=== PATIENT | male | born 1945 | race Caucasian/White ===

== ENCOUNTER 2018-03-07 04:14 | Emergency (ER) | payer OTHER ==
--- OUTSIDE RECORDS SUMMARY | 2018-03-07 04:16 | XMS REPORT | Clinical Summary ---
:1945 Author Organization [facility] Address [address] [place] [address] Care Team Providers Name Role Phone Yahir Smith MD Primary Care Provider Unavailable Allergies Active Allergy Reactions Severity Noted Date Comments Codeine Sulfate Salt 12/22/2017 Current Medications Prescription Sig. Disp. Refills Start Date End Date Status metFORMIN Take 500 mg by Active (GLUCOPHAGE) 500 mouth 2 (two) mg tablet times a day with meals. sertraline Take 100 mg by Active (ZOLOFT) 100 MG mouth daily. tablet prazosin Take 5 mg by Active (MINIPRESS) 5 MG mouth nightly. capsule gabapentin Take 600 mg by Active (NEURONTIN) 600 mg mouth 3 (three) tablet times a day. aspirin (ECOTRIN) Take 81 mg by Active 81 MG enteric mouth daily. coated tablet ipratropium-albute Inhale 2 puffs 4 Active rol (COMBIVENT (four) times a RESPIMAT) 20-100 day. mcg/actuation mist inhaler albuterol Take 2.5 mg by Active (PROVENTIL) 2.5 mg nebulization /3 mL (0.083 %) every 6 (six) nebulizer solution hours as needed for wheezing. tiotropium-olodate Take 2 Active rol (STIOLTO inhalations by RESPIMAT) 2.5-2.5 mouth once daily. mcg/actuation inhalation solution metoprolol Take 1 tablet (25 180 tablet 4 03/18/2017 Active tartrate mg total) by (LOPRESSOR) 25 mg mouth 2 (two) tablet times a day. ranolazine Take 1 tablet 180 tablet 4 03/18/2017 Active (RANEXA) 1,000 mg (1,000 mg total) 12 hr tablet by mouth 2 (two) times a day. esomeprazole Take 1 capsule 90 capsule 4 03/18/2017 Active (NexIUM) 40 MG (40 mg total) by capsule mouth daily before breakfast. omeprazole Take 1 capsule 60 capsule 4 06/11/2017 06/11/20 Active (PriLOSEC) 40 MG (40 mg total) by 18 capsule mouth daily. valACYclovir Take 1 tablet 90 tablet 1 11/05/2017 Active (VALTREX) 1000 MG (1,000 mg total) tablet by mouth daily. atorvastatin Take 1 tablet (40 90 tablet 2 12/20/2017 Active (LIPITOR) 40 MG mg total) by tablet mouth daily. clopidogrel Take 75 mg by Active (PLAVIX) 75 mg mouth daily. tablet lisinopril Take 5 mg by 03/18/20 Discontinued (PRINIVIL,ZESTRIL) mouth daily. 17 5 mg tablet clopidogrel Take 75 mg by 03/18/20 Discontinued (PLAVIX) 75 mg mouth daily. 17 tablet esomeprazole Take 40 mg by 03/18/20 Discontinued (NexIUM) 40 MG mouth daily 17 capsule before breakfast. ranolazine Take 1,000 mg by 03/18/20 Discontinued (RANEXA) 1,000 mg mouth 2 (two) 17 12 hr tablet times a day. metoprolol Take 25 mg by 03/18/20 Discontinued tartrate mouth 2 (two) 17 (LOPRESSOR) 25 mg times a day. tablet valACYclovir Take 1,000 mg by 06/11/20 Discontinued (VALTREX) 1000 MG mouth daily. 17 tablet atorvastatin Take 40 mg by 03/18/20 Discontinued (LIPITOR) 40 MG mouth daily. 17 tablet ipratropium Take 500 mcg by 12/23/19 Discontinued (ATROVENT) 0.02 % nebulization 4 18 nebulizer solution (four) times a day. nitroglycerin 1 under the 100 tablet 11 03/18/2017 12/23/19 Discontinued (NITROSTAT) 0.4 MG tongue as needed 18 SL tablet for angina, may repeat q5mins for up three doses atorvastatin Take 1 tablet (40 90 tablet 3 03/18/2017 12/21/19 Discontinued (LIPITOR) 40 MG mg total) by 18 tablet mouth daily. clopidogrel Take 1 tablet (75 90 tablet 3 03/18/2017 12/23/19 Discontinued (PLAVIX) 75 mg mg total) by 18 tablet mouth daily. lisinopril Take 1 tablet (5 90 tablet 4 03/18/2017 12/23/19 Discontinued (PRINIVIL,ZESTRIL) mg total) by 18 5 mg tablet mouth daily. valACYclovir Take 1 tablet 30 tablet 1 06/11/2017 11/05/19 Discontinued (VALTREX) 1000 MG (1,000 mg total) 18 tablet by mouth daily. Active Problems No known active problems Encounters Date Type Specialty Care Team Description 01/04/2018 Telephone Cardiology Vikash Sanders, pathology secretary/transcriptionist clearance-need MD and fax# 12/29/2017 Transcribe Orders Access Jayleen Farrell, Migraine without aura , intractable (Primary Dx); Cerebral aneurysm, nonruptured 12/23/2017 Hospital Encounter Gastroenterology Edgardo Zepeda MD 12/23/2017 Anesthesia Event Gastroenterology Ermias Salazar MD 12/23/2017 Procedure Pass Gastroenterology 12/23/2017 Surgery Gastroenterology Edgardo Zepeda COLONOSCOPY MD Brando 12/20/2017 Refill Cardiology Rachel Badillo Med Refill RN 11/05/2017 Refill Cardiology Rocio Varela MA Med Refill 06/22/2017 Hospital Encounter Radiology Nohemy Katz Mucaltagracia alfaro RMD Dionne bronchitis 06/16/2017 Transcribe Orders Access Nohemy Katz MD bronchitis (Primary Dx) 06/11/2017 Orders Only Cardiology Ulises Kim MA 06/11/2017 Orders Only Cardiology Ulises Kim MA 03/23/2017 Orders Only Cardiology Deven Mehta MD 03/18/2017 Office Visit Cardiology Deven Mehta Coronary artery disease involving [place] coronary artery of [place] heart without angina pectoris ( Primary Dx); MD Itz SADIE (obstructive sleep apnea) 03/09/2017 Hospital Encounter Nohemy Morrow Acute bronchitisLeila MD unspecified organism 03/09/2017 Transcribe Orders Nohemy Morrow Acute bronchitisLeila MD unspecified organism (Primary Dx) after 03/06/2017 Family History Relation Name Status Comments Father Mother Social History Tobacco Use Types Packs/Day Years Used Date Former Smoker Cigarettes 3 36 Quit: 12/23/2001 Smokeless Tobacco: Never Used Alcohol Use Drinks/Week oz/Week Comments No Sex Assigned at Date Recorded Not on file Last Filed Vital Signs Vital Sign Reading Time Taken Blood Pressure 143/65 12/23/2017 9:00 AM CDT Pulse 57 12/23/2017 9:00 AM CDT Temperature 36.6 C (97.9 F) 12/23/2017 8:39 AM CDT Respiratory Rate 16 12/23/2017 9:00 AM CDT Oxygen Saturation 97% 12/23/2017 9:00 AM CDT Inhaled Oxygen Concentration - - Weight 105 kg (231 lb) 12/23/2017 7:18 AM CDT Height 182.9 cm (6') 12/23/2017 7:18 AM CDT Body Mass Index 31.33 12/23/2017 7:18 AM CDT Plan of Treatment Date Type Specialty Care Team Description 03/10/2018 [place] [address] [facility] [address] [place], [place] [id number] 03/17/2018 Office Visit Cardiology Deven Mehta MD [address] [place], [place] [id number] Health Maintenance Due Date Last Done Comments COLON CANCER SCREENING 1997 SHINGRIX VACCINE (#1) 1997 ZOSTER VACCINE 2007 PNEUMOCOCCAL POLYSACCHARIDE VACCINE AGE 65 AND OVER 2012 PNEUMOCOCCAL-13 2012 INFLUENZA VACCINE 05/04/2018 Procedures Procedure Name Priority Date/Time Associated Diagnosis Comments COLONOSCOPY 12/23/2017 8:45 AM CDT HX OF COLON POLYPS, SCREENING after 03/06/2017 Results Estimated GFR (01/11/2018 7:15 AM) Component Value Ref Range GFR Non Af Amer >90 mL/min/1.73 m2 GFR Af Amer >90 mL/min/1.73 m2 Comment: Chronic kidney disease: <60 mL/min/1.73m2 Kidney failure: <15 mL/min/1.73m2 The estimated GFR is calculated from the IDMS-traceable Modification of Diet in Renal Disease Equation. The accuracy of the calculation is poor when the creatinine is normal. Calculated values >90 mL/min/1.73m2 are not reported. This equation has not been validated in children (<18 years), women, the elderly (>70 years), or ethnic groups other than Caucasians and Americans. Specimen Performing Laboratory Plasma specimen [facility] AND [address] [place] [address] Basic metabolic panel (01/11/2018 7:15 AM) Component Value Ref Range Sodium 137 135 - 148 mEq/L Potassium 3.9 3.5 - 5.0 mEq/L Chloride 98 98 - 112 mEq/L CO2 26 24 - 31 mEq/L Anion gap 13 7 - 15 mEq/L Comment: Starting from January , anion gap calculation no longer incorporates potassium. Please note the change. BUN 14 8 - 23 mg/dL Creatinine 0.8 0.7 - 1.2 mg/dL Glucose 182 (H) 65 - 99 mg/dL Calcium 9.6 8.8 - 10.2 mg/dL Specimen Performing Laboratory Plasma specimen [facility] [address] [place] [address] Surgical pathology request (12/23/2017 8:26 AM) Component Value Ref Range Surgical pathology report See link below for PDF Lab Report Result status This is Final Report to [id number] Specimen Performing Laboratory [facility] [address] [place] [id number] ECG 12 lead (12/23/2017 7:23 AM)Only the most recent of2 resultswithin the time period is included. Component Value Ref Range Ventricular rate 61 Atrial rate 61 TX interval 166 QRSD interval 102 QT interval 484 QTC interval 487 P axis 1 19 QRS axis 1 13 T wave axis 13 EKG impression Normal sinus rhythm-Minimal voltage criteria for LVH, may be normal variant-Inferior infarct , age undetermined-Cannot rule out Anterior infarct , age undetermined- Specimen Performing Laboratory [facility] [address] [place] [address] POC glucose (12/23/2017 7:21 AM) Component Value Ref Range POC glucose 149 (H) 65 - 99 mg/dL Comment: Meter ID: [id number] Dielectric Press Operator: Kimo Mcfarland Specimen Performing Laboratory [facility]PART[facility] OF [facility]OLOGY [facility] GENOMIC MEDICINE [address] [place] [address] CT Chest Wo Contrast (06/22/2017 7:18 AM) Specimen Performing Laboratory [facility] [address] [place] [address] Narrative EXAMINATION: CT CHEST WO CONTRAST CLINICAL HISTORY: J41.1 Mucopurulent chronic bronchitis, CHRONIC BRONCHITIS TECHNIQUE: Multiple axial images of the chest were obtained without intravenous contrast. The lack of intravenous contrast reduces the sensitivity of detecting solid organ disease and evaluating vasculature. Sagittal and coronal computerized reformatted images were also obtained.Automatic exposure control or iterative reconstruction techniques used to reduce dose. COMPARISON: 08/14/2016 FINDINGS: 1.No significant mediastinal or hilar lymphadenopathy. No significant pleural or pericardial effusions. Coronary artery calcifications are again seen. 2.No focal lung infiltrates are seen. Central airways are patent. No significant peribronchial wall thickening. Degenerative changes related to thoracic spine again noted. IMPRESSION: 1.No evidence for acute pulmonary consolidations. No significant mucous plugging. [facility]-[id number] Procedure [address] [facility], Radiology Results Incoming - 06/22/2017 7:44 AM CDT EXAMINATION: CT CHEST WO CONTRAST CLINICAL HISTORY: J41.1 Mucopurulent chronic bronchitis, CHRONIC BRONCHITIS TECHNIQUE: Multiple axial images of the chest were obtained without intravenous contrast. The lack of intravenous contrast reduces the sensitivity of detecting solid organ disease and evaluating vasculature. Sagittal and coronal computerized reformatted images were also obtained.Automatic exposure control or iterative reconstruction techniques used to reduce dose. COMPARISON: 08/14/2016 FINDINGS: 1. No significant mediastinal or hilar lymphadenopathy. No significant pleural or pericardial effusions. Coronary artery calcifications are again seen. 2. No focal lung infiltrates are seen. Central airways are patent. No significant peribronchial wall thickening. Degenerative changes related to thoracic spine again noted. IMPRESSION: 1. No evidence for acute pulmonary consolidations. No significant mucous plugging. [id number] COPY RECEIVED FROM: (03/23/2017 8:41 AM) Component Value Ref Range Copy received from: Comment: [facility] [id number] [facility] [address] [place] [address] Specimen Performing Laboratory [facility] Narrative FASTING:YES COPY(IES) SENT TO: (03/23/2017 8:41 AM) Component Value Ref Range Copies/mL Comment: [facility] [address] [place] [address] Specimen Performing Laboratory [facility] Narrative FASTING:YES B natriuretic peptide (03/23/2017 8:41 AM) Component Value Ref Range BNP 12 <100 pg/mL Comment: BNP levels increase with age in the general population with the highest values seen in individuals greater than 75 years of age. Reference: J. Am. Belinda. Cardiol. 2002; 40:976-982. Specimen Performing Laboratory [facility] Narrative FASTING:YES XR Chest 2 Vw (03/09/2017 6:53 AM) Specimen Performing Laboratory [facility] [address] [place] [address] Narrative EXAMINATION:XR CHEST 2 VW CLINICAL HISTORY:J20.9 Acute bronchitisunspecified, J20.9 COMPARISON:April 09, 2016 Chest PA and lateral views: Heart size is normal. The mediastinum is unremarkable. There are degenerative changes of the thoracic spine. There is chronic elevation of the right hemidiaphragm. There are no acute parenchymal lung findings visualized. There are degenerative changes of the thoracic spine noted IMPRESSION: No acute findings are visualized. [id number] Procedure Note [facility], Radiology Results Incoming - 03/09/2017 7:48 AM CDT EXAMINATION: XR CHEST 2 VW CLINICAL HISTORY: J20.9 Acute bronchitis unspecified, J20.9 COMPARISON: April 09, 2016 Chest PA and lateral views: Heart size is normal. The mediastinum is unremarkable. There are degenerative changes of the thoracic spine. There is chronic elevation of the right hemidiaphragm. There are no acute parenchymal lung findings visualized. There are degenerative changes of the thoracic spine noted IMPRESSION: No acute findings are visualized. [id number] after 03/06/2017 Insurance Payer Benefit Plan / Group Subscriber ID Type Phone Address [facility] xxxxxxxxxxx Work: Sara PARRISH [phone] [place], [place] [phone] Home: [phone]
[2018-03-07] MEDS ORDERED: ONDANSETRON 4 MG (ODT) TAB ONE (04:35)
[2018-03-07 04:44] LABS: Absolute Lymphocytes (CBC) 0.7 K/uL (0.7-4.9); Absolute Monocytes 0.6 K/uL (0.1-1.3); Absolute Neutrophil 5.5 K/uL (1.8-8.0); Basophils % 0.1 % (0-1.3); Eosinophils % 0.1 % (0-4.4); Hematocrit 39.7 % (39.6-49.0); Lymphocytes % 9.7 % (15.3-44.8); MCH 35.1 pg (27.0-35.0); MCV 102.2 fL (80-100); MPV 8.2 fL (7.6-11.3); Monocytes % 9.4 % (3.3-12.3); RBC Red Blood Cell Count 3.89 M/uL (4.33-5.43)
[2018-03-07] MEDS ORDERED: Morphine 2 MG/2 ML SYR ONE (04:55)
[2018-03-07 04:58] LABS: Bicarbonate 25 mEq/L (21-31); Glucose Level 169 mg/dL (65-120); Lipase 24 U/L (22-51); Potassium 3.3 mEq/L (3.6-5.0); Sodium Level 135 mEq/L (135-145)
[2018-03-07 05:04] LABS: ALT/SGPT 36 IU/L (10-60); AST/SGOT 32 IU/L (10-42); Albumin 4.2 g/dL (3.2-5.5); Alkaline Phosphatase 64 IU/L (42-121); Amylase Level 45 U/L (28-100); BUN Blood Urea Nitrogen 18 mg/dL (6-20); Bilirubin Direct 0.1 mg/dL (0-0.2); Bilirubin Total 0.7 mg/dL (0.3-1.2); Protein, Total 7.7 g/dL (6.0-8.3)
--- NOTE | 2018-03-07 06:32 | ER ---
Nurse's Notes [facility] Name: Yon Garcia Jr Age: 72 yrs Sex: Male : 1945 Arrival Date: 03/07/2018 Time: 04:18 Bed 6 Private MD: out of town, doctor Diagnosis: Vomiting, unspecified;Diarrhea, unspecified Presentation: 03/07 04:26 Presenting complaint: Patient states: Vomiting for since yesterday. Unable to eat and ao sleep. Patient also C/O body aches. Transition of care: patient was not received from another setting of care. Onset of symptoms was March 06, 2018 at 06:00. Risk Assessment: Do you want to hurt yourself or someone else? Patient reports no desire to harm self or others. Initial Sepsis Screen: Does the patient meet any 2 criteria? No. Patient's initial sepsis screen is negative. Does the patient have a suspected source of infection? No. Patient's initial sepsis screen is negative. Care prior to arrival: None. 04:26 Method Of Arrival: Ambulatory ao 04:26 Acuity: LACY 3 ao Historical: - Allergies: 04:28 Codeine; ao - Home Meds: 04:31 aspirin 81 mg Oral chew 1 tab once daily [Active]; Brovana 15 mcg/2 mL inhalation nebu ao 2 mL 2 times per day [Active]; clopidogrel 75 mg Oral tab 1 tab once daily [Active]; Combivent 18-103 mcg/actuation Inhl aero 2 puffs 4 times per day [Active]; gabapentin 600 mg Oral tab 1 tab 3 times per day [Active]; lisinopril 5 mg Oral tab 1 tab once daily [Active]; metformin 1,000 mg Oral tab 1 tab 2 times per day [Active]; metoprolol tartrate 25 mg Oral tab 1 tab 2 times per day [Active]; mirtazapine 15 mg Oral tab 1 tab once daily [Active]; Nexium 40 mg Oral cpDR 1 cap once daily [Active]; prazosin 2 mg Oral cap 4 caps daily [Active]; Ranexa 1,000 mg Oral Tb12 1 tab 2 times per day [Active]; sertraline 100 mg Oral tab 2 tabs once daily [Active]; valacyclovir 1 gram Oral tab 1 tab once daily [Active]; - PMHx: 04:28 agent orange; Anxiety; brain aneurysm x 5; COPD; Depression; Diabetes - NIDDM; heart ao attack; Hypertension; prostate blockage; PTSD; - PSHx: 04:28 None; stents; ao - Immunization history:: Adult Immunizations up to date. - Social history:: Smoking status: Patient/guardian denies using tobacco, Patient/guardian denies using alcohol, street drugs. - Ebola Screening: : Patient negative for fever greater than or equal to 101.5 degrees Fahrenheit, and additional compatible Ebola Virus Disease symptoms Patient denies exposure to infectious person Patient denies travel to an Ebola-affected area in the 21 days before illness onset. Screenin:41 Abuse screen: Denies threats or abuse. Denies injuries from another. Nutritional ao screening: No deficits noted. Tuberculosis screening: No symptoms or risk factors identified. Fall Risk None identified. Assessment: 04:30 General: Appears in no apparent distress. uncomfortable, Behavior is calm, cooperative, ao appropriate for age. Pain: Complains of pain in abdomen Pain currently is 6 out of 10 on a pain scale. Neuro: Level of Consciousness is awake, alert, obeys commands, Oriented to person, place, time, situation, Appropriate for age Moves all extremities. Speech is normal, Facial symmetry appears normal. Cardiovascular: Capillary refill < 3 seconds Patient's skin is warm and dry. Respiratory: Airway is patent Respiratory effort is even, unlabored, Respiratory pattern is regular, symmetrical. GI: Abdomen is obese, Reports diarrhea, nausea, vomiting. : No signs and/or symptoms were reported regarding the genitourinary system. EENT: No signs and/or symptoms were reported regarding the EENT system. Derm: Skin is intact, Skin is pink, warm \T\ dry. Skin temperature is warm. Musculoskeletal: Capillary refill < 3 seconds, Range of motion: limited in all extremities. 05:06 Reassessment: CT PENDING, VS STABLE ON MONITOR. bp 05:43 Reassessment: Patient appears in no apparent distress at this time. Patient and/or ao family updated on plan of care and expected duration. Pain level reassessed. Patient is alert, oriented x 3, equal unlabored respirations, skin warm/dry/pink. Patient under no distress. 06:57 Reassessment: DC instructions given to patient . Patient agree with the POC and to ao follow up with PCP. Patient has no questions at this time. Vital Signs: 04:28 Temp 100.1; ao 04:29 BP 143 / 52; Pulse 95; Resp 20; Pulse Ox 95% on R/A; Weight 106.59 kg; Height 6 ft. 0 ao in. (182.88 cm); Pain 6/10; 05:05 BP 148 / 78; Pulse 90; Resp 18; Pulse Ox 95% ; bp 05:43 BP 152 / 71; Pulse 92; Resp 16; Pulse Ox 94% on R/A; ao 06:57 BP 145 / 72; Pulse 88; Resp 18; Pulse Ox 95% on R/A; ao 04:29 Body Mass Index 31.87 (106.59 kg, 182.88 cm) ao ED Course: 04:18 Patient arrived in ED. es 04:19 out of town, doctor is Private Physician. es 04:21 Jc Soto MD is Attending Physician. tw4 04:26 Rudolph Mortensen, RN is Primary Nurse. ao 04:27 Triage completed. ao 04:28 Arm band placed on right wrist. Patient placed in an exam room, on a stretcher, on ao oxygen, on hospital monitor, on pulse oximetry. 04:39 Inserted saline lock: 20 gauge in right antecubital area, using aseptic technique. ao Blood collected. 04:41 Patient has correct armband on for positive identification. Pulse ox on. NIBP on. ao 05:[address] via stretcher. cw1 05:30 CT completed. Patient tolerated procedure well. Patient moved back from CT. kw1 05:34 CT Abd/Pelvis - W/Contrast In Process Unspecified. EDMS 06:57 No provider procedures requiring assistance completed. IV discontinued, intact, ao bleeding controlled, No redness/swelling at site. Pressure dressing applied. Administered Medications: 04:39 Drug: Zofran 4 mg Route: PO; ao 05:05 Follow up: Response: Nausea is decreased bp 04:57 Drug: morphine 2 mg Route: IVP; Site: right antecubital; bp 05:05 Follow up: Response: Pain is decreased bp Outcome: 06:31 Discharge ordered by . tw4 06:57 Discharged to home via wheelchair. ao 06:57 Condition: stable 06:57 Discharge instructions given to patient, Instructed on discharge instructions, follow up and referral plans. Demonstrated understanding of instructions, follow-up care, medications, wound care, Prescriptions given X 2. 06:59 Patient left the ED. ao Signatures: Dispatcher [employer] Myranda Li Crystal cw1 Rudolph Mortensen RN RN Brian Zhou RN RN bp Ml Correa kw1 Jc Soto MD MD tw4
--- NOTE | 2018-03-07 06:32 | EDPHYS ---
Physician Documentation [facility] Name: Yon Garcia Jr Age: 72 yrs Sex: Male : 1945 Arrival Date: 03/07/2018 Time: 04:18 Bed 6 Private MD: out of town, doctor ED Physician Jc Soto HPI: 03/07 05:09 This 72 yrs old Male presents to ER via Ambulatory with complaints of tw4 Vomiting/Diarrhea, Body ache. 05:09 The patient presents to the emergency department with nausea, vomiting, diarrhea, tw4 abdominal pain. Onset: The symptoms/episode began/occurred today. Possible causes: unknown. The symptoms are aggravated by nothing. The symptoms are alleviated by nothing. Severity of symptoms: At their worst the symptoms were moderate in the emergency department the symptoms are unchanged. The patient has not experienced similar symptoms in the past. Historical: - Allergies: : Codeine; ao - Home Meds: 04:31 aspirin 81 mg Oral chew 1 tab once daily [Active]; Brovana 15 mcg/2 mL inhalation nebu ao 2 mL 2 times per day [Active]; clopidogrel 75 mg Oral tab 1 tab once daily [Active]; Combivent 18-103 mcg/actuation Inhl aero 2 puffs 4 times per day [Active]; gabapentin 600 mg Oral tab 1 tab 3 times per day [Active]; lisinopril 5 mg Oral tab 1 tab once daily [Active]; metformin 1,000 mg Oral tab 1 tab 2 times per day [Active]; metoprolol tartrate 25 mg Oral tab 1 tab 2 times per day [Active]; mirtazapine 15 mg Oral tab 1 tab once daily [Active]; Nexium 40 mg Oral cpDR 1 cap once daily [Active]; prazosin 2 mg Oral cap 4 caps daily [Active]; Ranexa 1,000 mg Oral Tb12 1 tab 2 times per day [Active]; sertraline 100 mg Oral tab 2 tabs once daily [Active]; valacyclovir 1 gram Oral tab 1 tab once daily [Active]; - PMHx: 04:28 agent orange; Anxiety; brain aneurysm x 5; COPD; Depression; Diabetes - NIDDM; heart ao attack; Hypertension; prostate blockage; PTSD; - PSHx: :28 None; stents; ao - Immunization history:: Adult Immunizations up to date. - Social history:: Smoking status: Patient/guardian denies using tobacco, Patient/guardian denies using alcohol, street drugs. - Ebola Screening: : Patient negative for fever greater than or equal to 101.5 degrees Fahrenheit, and additional compatible Ebola Virus Disease symptoms Patient denies exposure to infectious person Patient denies travel to an Ebola-affected area in the 21 days before illness onset. ROS: 05:09 Constitutional: Negative for fever, chills, and weight loss, Cardiovascular: Negative tw4 for chest pain, palpitations, and edema, Respiratory: Negative for shortness of breath, cough, wheezing, and pleuritic chest pain. 05:09 MS/Extremity: Negative for injury and deformity, Skin: Negative for injury, rash, and discoloration, Neuro: Negative for headache, weakness, numbness, tingling, and seizure. 05:09 Abdomen/GI: Positive for abdominal pain, nausea and vomiting, nausea, vomiting, and diarrhea, nausea, vomiting, diarrhea, Negative for black/tarry stool, rectal pain, rectal bleeding, bowel incontinence. Exam: 05:09 Constitutional: This is a well developed, well nourished patient who is awake, alert, tw4 and in no acute distress. Head/Face: Normocephalic, atraumatic. Chest/axilla: Normal chest wall appearance and motion. Nontender with no deformity. No lesions are appreciated. Cardiovascular: Regular rate and rhythm with a normal S1 and S2. No gallops, murmurs, or rubs. Normal PMI, no JVD. No pulse deficits. Respiratory: Lungs have equal breath sounds bilaterally, clear to auscultation and percussion. No rales, rhonchi or wheezes noted. No increased work of breathing, no retractions or nasal flaring. Abdomen/GI: Soft, non-tender, with normal bowel sounds. No distension or tympany. No guarding or rebound. No evidence of tenderness throughout. Back: No spinal tenderness. No costovertebral tenderness. Full range of motion. MS/ Extremity: Pulses equal, no cyanosis. Neurovascular intact. Full, normal range of motion. Neuro: Awake and alert, GCS 15, oriented to person, place, time, and situation. Cranial nerves II-XII grossly intact. Motor strength 5/5 in all extremities. Sensory grossly intact. Cerebellar exam normal. Normal gait. Vital Signs: 04:28 Temp 100.1; ao 04:29 BP 143 / 52; Pulse 95; Resp 20; Pulse Ox 95% on R/A; Weight 106.59 kg; Height 6 ft. 0 ao in. (182.88 cm); Pain 6/10; 05:05 BP 148 / 78; Pulse 90; Resp 18; Pulse Ox 95% ; bp 05:43 BP 152 / 71; Pulse 92; Resp 16; Pulse Ox 94% on R/A; ao 06:57 BP 145 / 72; Pulse 88; Resp 18; Pulse Ox 95% on R/A; ao 04:29 Body Mass Index 31.87 (106.59 kg, 182.88 cm) ao MDM: 04:21 Patient medically screened. tw4 05:09 Differential diagnosis: Nonspecific abd pain, gastritis, cholecystitis, diverticulitis, tw4 viral gastroenteritis. Data reviewed: vital signs, nurses notes. Counseling: I had a detailed discussion with the patient and/or guardian regarding: the historical points, exam findings, and any diagnostic results supporting the discharge/admit diagnosis. 03/07 04:22 Order name: Amylase, Serum; Complete Time: 06:17 03/07 04:22 Order name: Basic Metabolic Panel; Complete Time: 06:17 03/07 06:18 Interpretation: Normal except: GLUC 169; K 3.3. 03/07 04:22 Order name: CBC with Diff; Complete Time: 06:17 03/07 06:18 Interpretation: Normal except: RBC 3.89; MCV 102.2; MCH 35.1; LYM% 9.7; MARIA EUGENIA% 80.7. 03/07 04:22 Order name: Creatinine for Radiology; Complete Time: 06:17 03/07 04:22 Order name: Hepatic Function; Complete Time: 06:17 03/07 04:22 Order name: Lipase; Complete Time: 06:17 03/07 06:18 Interpretation: Within normal limits: LIP 24. 03/07 04:22 Order name: Urine Microscopic Only 03/07 04:22 Order name: IV Saline Lock; Complete Time: 04:39 03/07 04:22 Order name: Labs collected and sent; Complete Time: 04:39 03/07 04:22 Order name: Urine Dipstick-Ancillary (obtain specimen); Complete Time: 06:57 03/07 04:32 Order name: CT Abd/Pelvis - W/Contrast 03/07 06:58 Order name: Urine Dipstick--Ancillary (enter results) [id number] Administered Medications: 04:39 Drug: Zofran 4 mg Route: PO; ao 05:05 Follow up: Response: Nausea is decreased bp 04:57 Drug: morphine 2 mg Route: IVP; Site: right antecubital; bp 05:05 Follow up: Response: Pain is decreased bp Disposition: 03/07/18 06:31 Discharged to Home. Impression: Vomiting, unspecified, Diarrhea, unspecified. - Condition is Stable. - Discharge Instructions: Diarrhea, Nausea and Vomiting. - Prescriptions for Zofran 4 mg Oral Tablet - take 1 tablet by ORAL route every 12 hours As needed; 20 tablet. Lomotil 2.5- 0.025 mg Oral Tablet - take 2 tablet by ORAL route once daily As needed; 20 tablet. - Medication Reconciliation Form, Thank You Letter, Antibiotic Education, Prescription Opioid Use form. - Follow up: Private Physician; When: As needed; Reason: Recheck today's complaints, Continuance of care, Re-evaluation by your physician. - Problem is new. - Symptoms have improved. Signatures: Dispatcher [employer] EDRudolph Mckinnon, RN RN Brian Zhou RN RN Jc Naidu MD MD tw4 Corrections: (The following items were deleted from the chart) 06:59 06:31 03/07/2018 06:31 Discharged to Home. Impression: Vomiting, unspecified; Diarrhea, ao unspecified. Condition is Stable. Forms are Medication Reconciliation Form, Thank You Letter, Antibiotic Education, Prescription Opioid Use. Follow up: Private Physician; When: As needed; Reason: Recheck today's complaints, Continuance of care, Re-evaluation by your physician. Problem is new. Symptoms have improved. tw4
[2018-03-07 08:35] LABS: Urine Bacteria <20 /HPF (NONE SEEN); Urine Culture Reflex Order NOT NEEDED; Urine RBC NONE SEEN /HPF (NONE SEEN)
--- NOTE | 2018-03-07 08:38 | RAD REPORT ---
EXAM DESCRIPTION: CT - Abdomen Pelvis W Contrast - 03/07/2018 6:38 am CLINICAL HISTORY: Abdominal pain, vomiting A preliminary written report was provided at the time of the study, and the report was reviewed prio r to final dictation. COMPARISON: None. TECHNIQUE: Biphasic, helical CT imaging of the abdomen and pelvis was performed following 100 ml non -ionic IV contrast. Oral contrast was given. All CT scans are performed using dose optimization technique as appropriate and may include automated exposure control or mA/KV adjustment according to patient size. FINDINGS: No suspicious findings in the lung bases. The liver, spleen, and pancreas show no suspicious findings. Liver shows a mild diffuse fatty infiltr ation pattern. Gallbladder is distended but not dilated. Gallstones can be occult. An acute gallbladd er or biliary tree process is not identified. Symmetric renal function is seen with no hydronephrosis or suspicious renal mass. No pyelonephritis o r acute renal parenchymal process. No urinary bladder abnormality. Prostate gland and seminal vesicle s are normal range. No dilated bowel loops or bowel wall thickening. Patient appears to have a moderate-sized duodenal di verticulum with no acute component. Distal small bowel loops are fluid-filled and there is fluid in t he nondilated colon. Appendix is normal. No free air, free fluid or inflammatory stranding. No herni a, mass or bulky lymphadenopathy. No adrenal abnormality. Disc and bony degenerative change present. No acute finding seen. Vascular calcifications present. IMPRESSION: Nonspecific gastroenteritis pattern is seen with no obstruction, free air or emergent fi nding. Mild diffuse fatty infiltration of the liver. Gallbladder is distended without wall thickening or edema. No biliary tree dilatation. Gallstones can be occult. Acute gallbladder process is doubtful.
[2018-03-07 23:05] LABS: Urine Blood NEGATIVE (NEG); Urine Glucose NEGATIVE (NEG); Urine Protein 1+ (NEG)
== END 2018-03-07 06:59 | disposition home or self-care (01) ==
LOC: ER 04:14
DX: R19.7 Diarrhea, unspecified (principal); Z88.5 Allergy status to narcotic agent; I10 Essential (primary) hypertension; E11.9 Type 2 diabetes mellitus without complications; F32.9 Major depressive disorder, single episode, unspecified; J44.9 Chronic obstructive pulmonary disease, unspecified; Z79.82 Long term (current) use of aspirin
CPT/HCPCS: 36415; 74177; 80048; 80076; 82150; 83690; 85025; J2270; Q9967; 81003; 81015; 96374; 99285

== ENCOUNTER 2022-03-24 18:36 | Inpatient (IN) | payer OTHER ==
--- OUTSIDE RECORDS SUMMARY | 2022-03-24 18:39 | XMS REPORT | Continuity of Care Document ---
:1945 Author Organization [facility] t Address [address] [place] [address] Care Team Providers Name Role Phone EMANUEL Attending Clinician Unavailable DEWEY Attending Clinician Unavailable Problems This patient has no known problems. Allergies, Adverse Reactions, Alerts This patient has no known allergies or adverse reactions. Medications This patient has no known medications. Procedures This patient has no known procedures. Encounters Start End Encounter Admission Attending Care Care Encounter Source Date/Time Date/Time Type Type Clinicians Facility Department ID 2021-08-21 2021-08-21 Outpatient [facility] [id number] [place] 00:00:00 00:00:00 JOANNA [address] 2020-11-26 2020-11-26 Outpatient [facility] [id number] [place] 00:00:00 00:00:00 JACOBY [address] 2020-08-20 2020-08-20 Outpatient [facility] [id number] [place] 00:00:00 00:00:00 JOANNA [address] 2020-08-15 2020-08-15 Outpatient [facility] [id number] [place] 00:00:00 00:00:00 JOANNA [address] Results This patient has no known results.
--- NOTE | 2022-03-24 20:20 | RAD REPORT ---
EXAM DESCRIPTION: RAD - Finger-Thumb Right - 03/24/2022 8:04 pm CLINICAL HISTORY: ANIMAL BITE COMPARISON: No comparisons FINDINGS: No acute fracture. No malalignment. Moderate joint space loss at the interphalangeal joint . Mild degenerative changes at the first MCP and at the first CMC joint. IMPRESSION: No acute osseous abnormality involving the right thumb. No radiopaque foreign body.
[2022-03-24] MEDS ORDERED: HYDROCODONE/APAP 10/325 TAB ONE (20:42)
--- NOTE | 2022-03-24 20:51 | ER ---
Nurse's Notes [facility] Name: Yon Garcia Jr Age: 76 yrs Sex: Male : 1945 Arrival Date: 03/24/2022 Time: 18:38 Bed 16 Private MD: Diagnosis: Cellulitis of left finger-left thumb Presentation: 03/24 18:56 Chief complaint: Patient states: Right thumb pain x 3 weeks with swelling and redness; vg1 states has [facility] but the swelling and redness has not improved. Coronavirus screen: Vaccine status: Patient reports receiving the 2nd dose of the covid vaccine. Client denies travel out of the [place] in the last 14 days. Ebola Screen: Patient denies exposure to infectious person. Patient denies travel to an Ebola-affected area in the 21 days before illness onset. Initial Sepsis Screen: Does the patient meet any 2 criteria? No. Patient's initial sepsis screen is negative. Does the patient have a suspected source of infection? No. Patient's initial sepsis screen is negative. Risk Assessment: Do you want to hurt yourself or someone else? Patient reports no desire to harm self or others. Onset of symptoms was March 03, 2022. 18:56 Method Of Arrival: Ambulatory vg1 18:56 Acuity: LACY 3 vg1 Triage Assessment: 18:58 General: Appears uncomfortable, Behavior is calm, cooperative. Pain: Complains of pain vg1 in right thumb Pain currently is 8 out of 10 on a pain scale. Historical: - Allergies: 18:58 Codeine; vg1 - PMHx: 18:58 agent orange; Anxiety; brain aneurysm x 5; COPD; Depression; Diabetes - NIDDM; heart vg1 attack; Hypertension; prostate blockage; PTSD; - Immunization history:: Client reports receiving the 2nd dose of the Covid vaccine. - Social history:: Smoking status: Patient denies any tobacco usage or history of. Screenin:38 Abuse screen: Denies threats or abuse. Tuberculosis screening: No symptoms or risk ke1 factors identified. Fall Risk No fall in past 12 months (0 pts). No secondary diagnosis (0 pts). No IV (0 pts). Ambulatory Aid- None/Bed Rest/Nurse Assist (0 pts). Gait- Normal/Bed Rest/Wheelchair (0 pts) Mental Status- Oriented to own ability (0 pts). Total Conroy Fall Scale indicates No Risk (0-24 pts). 23:48 Nutritional screening: No deficits noted. ke1 Vital Signs: 18:56 BP 151 / 93; Pulse 87; Resp 18; Temp 98.5(O); Pulse Ox 97% on R/A; Weight 93.89 kg; vg1 Height 6 ft. 0 in. (182.88 cm); Pain 8/10; 18:56 Body Mass Index 28.07 (93.89 kg, 182.88 cm) vg1 ED Course: 18:38 Patient arrived in ED. mr 18:58 Triage completed. vg1 18:58 Arm band placed on. vg1 19:36 Slim Keating PA is PHCP. cp 19:36 Daniel Pringle MD is Attending Physician. cp 20:06 XRAY Finger-Thumb RIGHT: dog bite 3 weeks ago In Process Unspecified. EDMS 20:34 Cristine Chiu, ROXANNE is Primary Nurse. ke1 20:40 Bed in low position. Call light in reach. ke1 20:48 Taco Guo is Hospitalizing Provider. cp 21:16 XRAY Chest (1 view) In Process Unspecified. EDMS 21:21 Deonte Powell MD is Hospitalizing Provider. la1 21:30 Inserted saline lock: 20 gauge in left antecubital area, using aseptic technique. ke1 21:48 COVID-19 SARS RT PCR (Document "Date of Onset" if Symptomatic) Sent. oe 23:48 No provider procedures requiring assistance completed. ke1 23:48 Patient admitted, IV remains in place. ke1 Administered Medications: 20:38 Drug: HYDROcodone-acetaminophen 10 mg-325 mg 1 tabs Route: PO; lg3 20:38 Follow up: Response: No adverse reaction lg3 21:18 CANCELLED (Other Intervention Used): Zosyn (piperacillin-tazobactam) 3.375 grams IVPB la1 once over 60 mins; (mix in NS 100 mL) 21:55 Drug: Unasyn (ampicillin-sulbactam) 3 grams Route: IVPB; Infused Over: 30 mins; Site: ke left antecubital; 22:45 Follow up: IV Status: Completed infusion ke1 22:55 Drug: vancoMYCIN 1 grams Route: IVPB; Infused Over: 2 hrs; Site: left antecubital; ke1 Outcome: 20:50 Decision to Hospitalize by Provider. cp 23:48 Admitted to Med/surg accompanied by tech. ke1 23:48 Condition: stable 23:48 Discharge instructions given to Instructed on the need for admit. 23:49 Patient left the ED. ke1 Signatures: Dispatcher [employer] EDCT Vy Odom mr Brant, Taco, STRETCHING MACHINE OPERATOR-C STRETCHING MACHINE OPERATOR-Cla1 Slim Keating PA PA cp Espinosa, Orlando oe Gibson, Lacie, RN RN lg3 Marisela Shelby, RN RN vg1 Cristine Chiu, RN RN ke1
--- NOTE | 2022-03-24 20:51 | EDPHYS ---
Physician Documentation [facility] Name: Yon Garcia Jr Age: 76 yrs Sex: Male : 1945 Arrival Date: 03/24/2022 Time: 18:38 Bed 16 Private MD: ED Physician Daniel Pringle HPI: 03/24 19:45 This 76 yrs old Male presents to ER via Ambulatory with complaints of Infected Thumb. cp 19:45 The patient or guardian reports decreased range of motion, pain, swelling, tenderness. cp The complaints affect the left thumb. 19:45 Context: resulted from dog bite to left thumb 3 weeks ago. Associated signs and cp symptoms: The patient has no apparent associated signs or symptoms. Patient reports she has been taking prescribed Augmentin from physician at [facility] times 1 week. Historical: - Allergies: 18:58 Codeine; vg1 - PMHx: 18:58 agent orange; Anxiety; brain aneurysm x 5; COPD; Depression; Diabetes - NIDDM; heart vg1 attack; Hypertension; prostate blockage; PTSD; - Immunization history:: Client reports receiving the 2nd dose of the Covid vaccine. - Social history:: Smoking status: Patient denies any tobacco usage or history of. ROS: 19:50 Constitutional: Negative for body aches, chills, fever, poor PO intake. cp 19:50 Eyes: Negative for injury, pain, redness, and discharge. cp 19:50 Cardiovascular: Negative for chest pain. 19:50 Respiratory: Negative for cough, shortness of breath, wheezing. 19:50 Back: Negative for pain at rest, pain with movement. 19:50 MS/extremity: Positive for decreased range of motion, erythema, pain, swelling, tenderness, of the left thumb. 19:50 Neuro: Negative for altered mental status, headache, weakness. 19:50 All other systems are negative. Exam: 19:55 Constitutional: The patient appears in no acute distress, alert, awake, non-toxic, well cp developed, well nourished. 19:55 Head/Face: Normocephalic, atraumatic. cp 19:55 Eyes: Periorbital structures: appear normal, Conjunctiva: normal, no exudate, no injection, Sclera: no appreciated abnormality, Lids and lashes: appear normal, bilaterally. 19:55 ENT: External ear(s): are unremarkable, Nose: is normal, Mouth: Lips: moist, Oral mucosa: pink and intact, moist, Posterior pharynx: Airway: no evidence of obstruction, patent. 19:55 Chest/axilla: Inspection: normal. 19:55 Cardiovascular: Rate: normal, Rhythm: regular, Edema: is not appreciated, JVD: is not appreciated. 19:55 Respiratory: the patient does not display signs of respiratory distress, Respirations: normal, no use of accessory muscles, no retractions, labored breathing, is not present, Breath sounds: are clear throughout, no decreased breath sounds, no stridor, no wheezing. 19:55 Abdomen/GI: Inspection: abdomen appears normal, Bowel sounds: active, all quadrants, Palpation: abdomen is soft and non-tender, in all quadrants. 19:55 Back: pain, is absent, ROM is normal. 19:55 Musculoskeletal/extremity: Extremities: noted in the left thumb: decreased ROM, erythema, pain, swelling, tenderness, Perfusion: the extremity is pink, with brisk capillary refill, the left thumb Sensation intact. Joints: the left thumb interphalangeal joint displays pain at rest, painful range of motion, swelling, tenderness, Tendon exam: postive for pain and tenderness to palpation of flexor and extensor tendons of left thumb. 21:45 ECG was reviewed by the Attending Physician. Vital Signs: 18:56 BP 151 / 93; Pulse 87; Resp 18; Temp 98.5(O); Pulse Ox 97% on R/A; Weight 93.89 kg; vg1 Height 6 ft. 0 in. (182.88 cm); Pain 8/10; 18:56 Body Mass Index 28.07 (93.89 kg, 182.88 cm) vg1 MDM: 19:38 Patient medically screened. cp 20:00 Differential diagnosis: open fracture, closed fracture, tenosynovitis, cellulitis, cp abscess. 20:45 Data reviewed: vital signs, nurses notes, radiologic studies, plain films. cp 20:45 Test interpretation: by ED physician or midlevel provider: plain radiologic studies. cp Counseling: I had a detailed discussion with the patient and/or guardian regarding: the historical points, exam findings, and any diagnostic results supporting the discharge/admit diagnosis, radiology results, the need for further work-up and treatment in the hospital. 20:46 Physician consultation: Tye Dacosta MD was called at 20:43, was contacted at 20:43, regarding consult, patient's condition, and will see patient tomorrow, requests admission to hospitalist services. 03/24 20:45 Order name: Basic Metabolic Panel; Complete Time: 22:59 cp 03/24 23:33 Interpretation: Normal except: NA 135; GLUC 168. cp 03/24 20:45 Order name: CBC with Diff; Complete Time: 22:59 cp 03/24 23:33 Interpretation: Normal except: RBC 3.87; MCV 102.7; MCH 36.1; MPV 7.3. cp 03/24 20:45 Order name: LFT's; Complete Time: 22:59 cp 03/24 23:34 Interpretation: Normal except: GLOB 4.2; A/G 0.9. cp 03/24 20:45 Order name: Magnesium; Complete Time: 22:59 cp 03/24 20:45 Order name: NT PRO-BNP; Complete Time: 22:59 cp 03/24 20:45 Order name: PT-INR; Complete Time: 22:59 cp 03/24 20:45 Order name: Troponin HS; Complete Time: 22:59 cp 03/24 20:45 Order name: Lactate; Complete Time: 22:59 cp 03/24 20:45 Order name: Procalcitonin; Complete Time: 23:33 cp 03/24 23:33 Interpretation: Reviewed. cp 03/24 20:45 Order name: ESR; Complete Time: 22:59 cp 03/24 23:34 Interpretation: Abnormal: SED 39. cp 03/24 20:45 Order name: CRP; Complete Time: 22:59 cp 03/24 23:34 Interpretation: Within normal limits. cp 03/24 20:45 Order name: Blood Culture Adult (2) cp 03/24 21:20 Order name: COVID-19 SARS RT PCR (Document "Date of Onset" if Symptomatic); Complete la1 Time: 22:59 03/24 19:43 Order name: XRAY Finger-Thumb RIGHT: dog bite 3 weeks ago; Complete Time: 20:25 cp 03/24 20:45 Order name: XRAY Chest (1 view); Complete Time: 21:50 cp 03/24 20:45 Order name: EKG; Complete Time: 20:46 cp 03/24 20:45 Order name: Cardiac monitoring; Complete Time: 21:47 cp 03/24 20:45 Order name: EKG - Nurse/Tech; Complete Time: 21:47 cp 03/24 20:45 Order name: IV Saline Lock; Complete Time: 22:05 cp 03/24 20:45 Order name: Labs collected and sent; Complete Time: 22:05 cp 03/24 20:45 Order name: O2 Per Protocol; Complete Time: 22:06 cp 03/24 20:45 Order name: O2 Sat Monitoring; Complete Time: 22:06 cp EC:45 Rate is 76 beats/min. Rhythm is regular. KS interval is normal. QRS interval is cp prolonged at 106 msec. QT interval is normal. T waves are Inverted in lead aVR. Interpreted by me. Reviewed by me. Administered Medications: 20:38 Drug: HYDROcodone-acetaminophen 10 mg-325 mg 1 tabs Route: PO; lg3 20:38 Follow up: Response: No adverse reaction lg3 21:18 CANCELLED (Other Intervention Used): Zosyn (piperacillin-tazobactam) 3.375 grams IVPB la1 once over 60 mins; (mix in NS 100 mL) 21:55 Drug: Unasyn (ampicillin-sulbactam) 3 grams Route: IVPB; Infused Over: 30 mins; Site: [facility] left antecubital; 22:45 Follow up: IV Status: Completed infusion ke1 22:55 Drug: vancoMYCIN 1 grams Route: IVPB; Infused Over: 2 hrs; Site: left antecubital; formerly [facility] Disposition: 03/25 01:41 Co-signature as Attending Physician, Daniel Pringle MD I agree with the assessment and kdr plan of care. Disposition Summary: 03/24/22 20:50 Hospitalization Ordered Hospitalization Status: Inpatient Admission cp Location: Telemetry/MedSurg (Inpatient) cp Condition: Stable cp Problem: new cp Symptoms: have improved cp Bed/Room Type: Standard cp Provider: Deonte Powell(03/24/22 21:21) la1 Room Assignment: [facility] [place](03/24/22 22:56) Diagnosis - Cellulitis of left finger - left thumb cp Forms: - Medication Reconciliation Form cp - SBAR form cp Signatures: Dispatcher [employer] EDShaina Allison RN RN mw Rittger, Kevin, MD MD kdr Taco Guo, SENIOR INFORMATION SYSTEMS ARCHITECT-C SENIOR INFORMATION SYSTEMS ARCHITECT-Cla1 Slim Keating PA PA cp Sarita Greer, RN RN lg3 Marisela Shelby RN RN vg1 Cristine Chiu RN RN ke1 Corrections: (The following items were deleted from the chart) 03/24 21:18 20:46 Zosyn (piperacillin-tazobactam) 3.375 grams IVPB once over 60 mins; (mix in NS la1 100 mL) ordered. cp 21: 20:50 Taco Guo cp la1 22:56 20:50 cp mw
--- NOTE | 2022-03-24 21:32 | RAD REPORT ---
EXAM DESCRIPTION: RAD - Chest Single View - 03/24/2022 9:15 pm CLINICAL HISTORY: pre-op COMPARISON: Chest Single View dated 10/18/2017; CHEST SINGLE VIEW dated 09/19/2010; CHEST SINGLE VIEW dated 06/28/2008; CHEST SINGLE VIEW dated 02/20/2008 FINDINGS: Lines: None. Lungs: No evidence of edema or pneumonia. Pleural: No significant pleural effusions or pneumothorax. Cardiac: The heart size is within normal limits. Bones: No acute fractures. Other: IMPRESSION: No acute cardiopulmonary disease.
[2022-03-24] MEDS ORDERED: VANCOMYCIN 1 GM/VIAL ONE (21:53)
[2022-03-24] MEDS ORDERED: NA CHLORIDE 0.9% 250 ML ONE (21:53)
[2022-03-24] MEDS ORDERED: AMPICILLIN/SULBACTAM 3GM/VIAL ONE (21:53)
[2022-03-24] MEDS ORDERED: NA CHLORIDE 0.9% 100 ML ONE (21:53)
[2022-03-24 22:01] LABS: Absolute Lymphocytes (CBC) 2.5 K/uL (0.7-4.9); Hematocrit 39.8 % (39.6-49.0); Lymphocytes % 36.3 % (15.3-44.8); MCV 102.7 fL (80-100); MPV 7.3 fL (7.6-11.3); RBC Red Blood Cell Count 3.87 M/uL (4.33-5.43)
--- NOTE | 2022-03-24 22:02 | P.HP ---
Certification for Inpatient Patient admitted to: Inpatient With expected LOS: >2 Midnights Patient will require the following post-hospital care: None Practitioner: I am a practitioner with admitting privileges, knowledge of patient current condition, hospital course, and medical plan of care. Services: Services provided to patient in accordance with Admission requirements found in Title 42 Section 412.3 of the Code of Federal Regulations Patient History Date of Service: 03/24/22 Reason for admission: Cellulitis of the right thumb History of Present Illness: 76-year-old male history of COPD, diabetes mellitus type 2diet controlled, CAD, hypertension presents the emergency department for infection of his right thumb. He reports he was bit by his neighbors dog approximately 3 weeks ago the dog was up-to-date on all his vaccines, [facility] an [facility] believed to be Augmentin. He continues to have significant swelling, tenderness and pain of the right thumb. ED provider discussed case with Dr. Dacosta who wishes for patient to be admitted to the hospitalist service with likely surgical intervention tomorrow. Patient reports he is up-to-date on his tetanus vaccine, his x-ray of the thumb was unremarkable for any acute findings. Allergies codeine Allergy (Severe, Verified 03/20/13 14:46) Hallucinations - Past Medical/Surgical History -: Diabetes mellitus type 2diet controlled -: CAD -: Agent orange exposure -: PTSD -: Hypertension -: BPH -: COPD -: Multiple brain aneurysm surgeries -: Left knee surgery Psychosocial/ Personal History: Patient lives at home with his - Family History Family History: Reviewed- Non-Contributory - Social History Smoking Status: Never smoker Alcohol use: No CD- Drugs: No Caffeine use: Yes Place of Residence: Home Review of Systems 10-point ROS is otherwise unremarkable Integumentary: Other (Swelling, pain right thumb) Physical Examination - Physical Exam General: Alert, In no apparent distress, Oriented x3 HEENT: Atraumatic, PERRLA, Mucous membr. moist/pink, EOMI, Sclerae nonicteric Neck: Supple, 2+ carotid pulse no bruit, No LAD, Without JVD or thyroid abnormality Respiratory: Clear to auscultation bilaterally, Normal air movement Cardiovascular: Regular rate/rhythm, Normal S1 S2 Capillary refill: <2 Seconds Gastrointestinal: Normal bowel sounds, No tenderness Musculoskeletal: Swelling (Right thumb), Erythema, Tenderness, Warmth Integumentary: No rashes Neurological: Normal speech, Normal strength at 5/5 x4 extr, Normal tone, Normal affect Assessment and Plan - Plan Assessment: Cellulitis of the right thumb secondary to dog bitefailed outpatient antibiotic Diabetes mellitus type 2diet controlled COPD CAD BPH Hypertension PTSD Plan: Cellulitis of the right thumb secondary to dog bitefailed outpatient antibiotic: Hand surgery consulted n.p.o. for midnight for likely surgical intervention continue broad-spectrum antibiotics with Unasyn/vancomycin. Patient reports dog was up-to-date with vaccinations, his tetanus is up-to-date. Appreciate further input from hand surgery. Diabetes mellitus type 2diet controlled: Monitor blood sugar ACH S, if blood sugars remain stable may switch to just daily lab. COPD: We will provide as needed medications CAD: Continue home medications when appropriate BPH:Continue home medications when appropriate Hypertension:Continue home medications when appropriate PTSD: Continue home medications when appropriate DVT PPX: SCD Code status: Full Discharge Plan: Home Plan to discharge in: 72 Hours - Advance Directives Does patient have a Living Will: No Does patient have a Durable POA for Healthcare: No - Code Status/Comfort Care Code Status Assessed: Yes (Full code) Critical Care: No Time Spent Managing Pts Care (In Minutes): 70
[2022-03-24 22:03] LABS: Protime INR 0.97
[2022-03-24 22:16] LABS: ALT/SGPT 35 U/L (12-78); AST/SGOT 16 U/L (15-37); Albumin 3.8 g/dL (3.4-5.0); Alkaline Phosphatase 105 U/L (45-117); BUN Blood Urea Nitrogen 14 mg/dL (7-18); Bicarbonate 28 mmol/L (21-32); Bilirubin Total 0.3 mg/dL (0.2-1.0); C-Reactive Protein 2.94 mg/L (<3.00); Glomerular Filtration Rate 91 ml/min (=/>90); Glucose Level 168 mg/dL (74-106); Magnesium 2.2 mg/dL (1.8-2.4); NT PRO-BNP 104 pg/mL (<125); Potassium 3.8 mmol/L (3.5-5.1); Sodium Level 135 mmol/L (136-145)
[2022-03-24 22:48] LABS: Bilirubin Direct < 0.1 mg/dL (0-0.2)
[2022-03-24] MEDS ORDERED: VANCOMYCIN 1 GM in NA CHLORIDE 0.9% 250 ML IVPB SCH (23:55)
[2022-03-24] MEDS ORDERED: MORPHINE 2 MG/ML SYR IV PRN (23:55)
[2022-03-25] MEDS: ONDANSETRON 4 MG/2 ML VIAL IV PRN ×2 (00:34→06:16)
[2022-03-25] MEDS: NA CHLORIDE 0.9% 1,000 ML IV SCH ×2 (00:34→09:24)
[2022-03-25] MEDS ORDERED: VANCOMYCIN 750 MG in NA CHLORIDE 0.9% 150 ML IVPB ONE (02:00)
[2022-03-25] MEDS ORDERED: VANCOMYCIN 1 GM/VIAL ONE (02:03)
[2022-03-25] MEDS: HYDROMORPHONE HCL 0.5 MG/0.5 ML INJ IV PRN ×5 (02:04→20:39)
[2022-03-25] MEDS ORDERED: NA CHLORIDE 0.9% 100 ML ONE (02:04)
[2022-03-25 02:54] LABS: Urine Appearance Clear (Clear); Urine Bilirubin Negative (Negative); Urine Blood Negative (Negative); Urine Color Yellow (Yellow); Urine Glucose 3+ (Negative); Urine Protein Negative (Negative); Urine Urobilinogen 0.2 mg/dL (0.2-1.0); Urine pH 5.5 (5.0-7.0)
[2022-03-25 03:49] LABS: Absolute Lymphocytes (CBC) 2.8 K/uL (0.7-4.9); Hematocrit 39.2 % (39.6-49.0); Lymphocytes % 35.9 % (15.3-44.8); MCV 101.7 fL (80-100); MPV 6.9 fL (7.6-11.3); RBC Red Blood Cell Count 3.86 M/uL (4.33-5.43)
[2022-03-25 04:02] LABS: Albumin 3.8 g/dL (3.4-5.0); Bilirubin Total 0.4 mg/dL (0.2-1.0); Potassium 4.4 mmol/L (3.5-5.1)
[2022-03-25] MEDS: AMPICILLIN/SULBACT 3 GM in NA CHLORIDE 0.9% 100 ML IVPB SCH ×6 (05:04→23:19)
--- NOTE | 2022-03-25 06:48 | P.PN ---
Date of Service: 03/25/22 Subjective: no significant change ROS: 10 point ROS as noted above, otherwise negative Physical exam GEN: Alert, oriented, NAD CV: Regular rate and rhythm, no edema Pulm: Nonlabored respirations on room air ABD: Soft, nontender, nondistended Integumentary: R thumb: swollen, erythematous, tender Neuro: Normal speech, normal affect Problem List Cellulitis of the right thumb secondary to dog bitefailed outpatient antibiotic Diabetes mellitus type 2diet controlled COPD CAD BPH Hypertension PTSD Continue IV antibiotics N.p.o. for possible surgery Dr. Daocsta consulted, to see patient today likely needs OR unclear at this time duration of hospitalization, may need subsequent I&D confirm home meds, restart once taking PO / as appropriate VTE: SCDs - for possible surgery today Code: Full Dispo: Home, pending surgery findings / plan; may need home health for wound dressings Time Spent Managing Pts Care (In Minutes): 35
--- NOTE | 2022-03-25 07:17 | EKG ---
Test Date: 2022-03-24 Test Time: 21:39:23 Floor Sander: KODI MEASUREMENT RESULTS: Intervals: Rate: 76 NV: 172 QRSD: 106 QT: 420 QTc: 472 [place]: P: 49 NV: 172 QRS: 35 T: 22 INTERPRETIVE STATEMENTS: Normal sinus rhythm Inferior infarct, age undetermined Cannot rule out Anterior infarct, age undetermined Abnormal ECG Compared to ECG 10/18/2017 07:46:34 Prolonged QT interval no longer present Myocardial infarct finding still present Electronically Signed On 03-25-22 07:17:06 CDT by Khoi Johns
[2022-03-25] MEDS: INSULIN -REGULAR HUMAN 50 UNIT/0.5 ML ML SQ SCH ×4 (07:30→20:39)
[2022-03-25] MEDS: VANCOMYCIN 1.75 GM in NA CHLORIDE 0.9% 500 ML IVPB SCH ×2 (09:24→21:00)
[2022-03-25] MEDS ORDERED: FENTANYL CITR 100 MCG/2 ML ONE (11:55)
[2022-03-25] MEDS ORDERED: propofoL 200 MG/20 ML VIAL IV ONE (11:56)
[2022-03-25] MEDS ORDERED: LIDOCAINE 1% MPF 5 ML VIAL ONE (11:56)
[2022-03-25] MEDS ORDERED: ONDANSETRON 4 MG/2 ML VIAL ONE (12:32)
[2022-03-25] MEDS ORDERED: KETOROLAC 30 MG/ML INJ ONE (12:33)
[2022-03-25] MEDS: HYDROMORPHONE HCL 1 MG/ML INJ ONE ×3 (13:20→13:25)
[2022-03-25] MEDS ORDERED: HYDROMORPHONE HCL 1 MG/ML INJ ONE (13:34)
--- NOTE | 2022-03-25 14:48 | HP ---
Date of Admission: 03/24/2022 History Of Present Illness: A 76-year-old white male, who is right-handed dominant, bitten his right thumb by neighbor's dog 2 weeks ago, treated with antibiotics, presented to the emergency room. Tetanus has been given. He has diabetes, myocardial infarction, Social History: He does not smoke. He does not drink. Allergies: HE HAS NO ALLERGIES Medications: See the list. Physical Examination: Vital Signs: He is 6 feet, 247 pounds. Extremities: On exam, he has transverse laceration of the dorsum of the thumb over the IPJ. Assessment: Infection of the thumb. Plan: Incision and drainage. X-rays were unremarkable for any fracture or foreign body. LUNA/JAIR Voice ID: [id number] MTDD
--- NOTE | 2022-03-25 15:18 | OP ---
Surgeon: Tye Dacosta MD Preoperative Diagnosis: Dog bite to the right thumb. Postoperative Diagnosis: Dog bite to the right thumb. Procedure Performed: Debridement of skin, subcutaneous tissue bone; arthrotomy; synovial biopsy. Anesthesia: General. Description Of Procedure: After satisfactory induction of general anesthesia, the left arm was prepp ed with Betadine scrub and Betadine paint. Dry sterile drapes were applied in the usual manner. The arm was elevated, exsanguinated with an Esmarch tourniquet inflated to 250 mmHg. The patient had tr ansverse laceration at the IPJ of the dorsum of the right thumb. Dissection was proceeded down. Pus was encountered. Cultures were taken. Proximal and distal incisions were made in a zigzag manner. The flap was avulsed. Then, an incision was made longitudinally in the extensor mechanism in contin uity with the hole made by the dog's tooth and the bone was eroded on the radial and distal side of t he proximal phalanx no osteo at this time. The wound was jet lavaged, irrigated with 3 L of Betadine solution. Tourniquet was released. Electrocautery was used for hemostasis. The wound was packed w ith Betadine-soaked quarter-inch Nu Gauze and 2-inch Kim. The patient tolerated the procedure well and returned to the Recovery. LUNA/JAIR Voice ID: [id number] Report ID: [id number]
[2022-03-25] MEDS: CODEINE 30MG/APAP 300MG TAB PO PRN ×2 (17:53→23:19)
[2022-03-26] MEDS: HYDROMORPHONE HCL 0.5 MG/0.5 ML INJ IV PRN ×5 (03:39→20:01)
[2022-03-26] MEDS: AMPICILLIN/SULBACT 3 GM in NA CHLORIDE 0.9% 100 ML IVPB SCH ×3 (06:34→17:29)
[2022-03-26 06:40] VITALS: BMI 28.8
[2022-03-26 06:55] LABS: Hematocrit 32.2 % (39.6-49.0); Lymphocytes % 30.3 % (15.3-44.8); MCV 102.7 fL (80-100); MPV 7.2 fL (7.6-11.3); RBC Red Blood Cell Count 3.13 M/uL (4.33-5.43)
[2022-03-26] MEDS: INSULIN -REGULAR HUMAN 50 UNIT/0.5 ML ML SQ SCH ×4 (07:30→20:06)
[2022-03-26] MEDS: VANCOMYCIN 1.75 GM in NA CHLORIDE 0.9% 500 ML IVPB SCH (08:06)
--- NOTE | 2022-03-26 11:44 | DS ---
The patient continues to improve. Plan to continue for wound care LUNA/JAIR Voice ID: [id number] Report ID: [id number]
[2022-03-26] MEDS: CODEINE 30MG/APAP 300MG TAB PO PRN (14:33)
--- NOTE | 2022-03-26 17:43 | P.PN ---
Date of Service: 03/26/22 Subjective: s/p I&D, dressing in place pain medication helps no new symptoms ROS: 10 point ROS as noted above, otherwise negative Physical exam GEN: Alert, oriented, NAD CV: Regular rate and rhythm, no edema Pulm: Nonlabored respirations on room air ABD: Soft, nontender, nondistended Integumentary: R thumb with dressing in place, c/d/i Neuro: Normal speech, normal affect Problem List Cellulitis of the right thumb secondary to dog bitefailed outpatient antibiotic Diabetes mellitus type 2diet controlled COPD CAD BPH Hypertension PTSD Continue IV antibiotics s/p I&D on 03/25; noted involvement to bone purulent drainage noted in OR, sent for culture needs IV antibiotics, f/u culture will need to return to OR in a few days restart home meds as appropriate Code: Full Dispo: Home, Wednesday/Wednesday Time Spent Managing Pts Care (In Minutes): 35
[2022-03-27] MEDS: AMPICILLIN/SULBACT 3 GM in NA CHLORIDE 0.9% 100 ML IVPB SCH ×5 (00:12→23:46)
[2022-03-27] MEDS: HYDROMORPHONE HCL 0.5 MG/0.5 ML INJ IV PRN ×6 (00:12→20:50)
[2022-03-27] MEDS: MELATONIN 5 MG TABLET PO PRN (01:09)
[2022-03-27] MEDS: VANCOMYCIN 1.75 GM in NA CHLORIDE 0.9% 500 ML IVPB SCH ×2 (03:56→20:46)
[2022-03-27 03:58] LABS: Hematocrit 31.9 % (39.6-49.0); Lymphocytes % 30.5 % (15.3-44.8); MCV 102.6 fL (80-100); RBC Red Blood Cell Count 3.11 M/uL (4.33-5.43)
--- NOTE | 2022-03-27 07:10 | P.PN ---
Date of Service: 03/27/22 Subjective: no acute events pain continues; has allergy to codeine no new symptoms ROS: 10 point ROS as noted above, otherwise negative Physical exam GEN: Alert, oriented, NAD CV: Regular rate and rhythm, no edema Pulm: Nonlabored respirations on room air Integumentary: R thumb with dressing in place, c/d/i Neuro: Normal speech, normal affect Problem List Cellulitis of the right thumb secondary to dog bitefailed outpatient antibiotic Diabetes mellitus type 2diet controlled COPD CAD BPH Hypertension PTSD Continue IV antibiotics s/p I&D on 03/25; noted involvement to bone purulent drainage noted in OR, sent for culture - no growth so far needs IV antibiotics, f/u culture will need to return to OR in a few days - tentative plan is Wednesday for closure ID consulted, if bone involvement, ?need for IV antibiotics / PICC Code: Full Dispo: Home, Wednesday/Wednesday Time Spent Managing Pts Care (In Minutes): 35
[2022-03-27] MEDS: INSULIN -REGULAR HUMAN 50 UNIT/0.5 ML ML SQ SCH ×4 (07:30→20:12)
[2022-03-27] MEDS: HYDROCODONE/APAP 5/325 MG TAB PO PRN ×2 (10:51→22:26)
--- NOTE | 2022-03-27 12:47 | P.CNS ---
Date of Consult: 03/27/22 Chief Complaint: Cellulitis of the right thumb History of Present Illness: The patient is a 76-year-old male with a past medical history of COPD, diabetes mellitus type 2, CAD, and hypertension who presented to the emergency department secondary to infection/cellulitis of his right thumb. Patient states that he was bit by his neighbors dog approximately 3 weeks ago. States dog is up-to-date on all his vaccines and he received a tetanus shot. He states that he was evaluated at the [facility] on the and prescribed a 10-day course of amoxicillin. He continues to have swelling/tenderness so he presented to our facility. He underwent a surgical I&D performed by Dr. Nash neff on 03/25. He is empirically placed on vancomycin and Unasyn. Blood cultures show no growth, wound culture shows no growth. WBC within normal range. Patient currently denies nausea/vomiting/diarrhea/shortness of breath/chest pain. Reports numbness to right thumb. Allergies codeine Allergy (Severe, Verified 03/20/13 14:46) Hallucinations Home Medications: Albuterol Neb [Proventil 0.083% Neb Soln] 2.5 mg IH BID 03/25/22 Aspirin [Aspirin EC 81 MG] 81 mg PO DAILY 03/25/22 Atorvastatin Calcium [Lipitor] 80 mg PO DAILY 03/25/22 Clopidogrel Bisulfate [Plavix] 75 mg PO DAILY 03/25/22 Cyanocobalamin [Vitamin B-12] 1,000 mcg PO DAILY 03/25/22 Duloxetine HCl [Cymbalta] 30 mg PO BID 03/25/22 Ergocalciferol (Vitamin D2) [Vitamin D2] 50,000 unit PO EVERY 7TH DAY 03/25/22 Esomeprazole Mag Trihydrate [Nexium] 40 mg PO DAILY 03/25/22 Gabapentin 600 mg PO TID 03/25/22 Glipizide [Glipizide ER] 10 mg PO BIDWM 03/25/22 Ipratropium/Albuterol Sulfate [Combivent Respimat Inhal [place]] 4 gm IH QID 03/25/22 Lisinopril [Zestril] 10 mg PO DAILY 03/25/22 Metformin HCl 1,000 mg PO BID 03/25/22 Metoprolol Tartrate [Lopressor] 50 mg PO BID 03/25/22 Prazosin HCl [Minipress] 10 mg PO BEDTIME 03/25/22 Ranolazine [Ranexa] 1,000 mg PO BID 03/25/22 Sertraline HCl 200 mg PO DAILY 03/25/22 Tiotropium Br/Olodaterol HCl [Stiolto Respimat Inhal [place]] 2 puff IH DAILY 03/25/22 Trazodone HCl 50 mg PO BEDTIME 03/25/22 Valacyclovir HCl [Valacyclovir] 1,000 mg PO DAILY 03/25/22 - Past Medical/Surgical History Diabetic: Yes -: Diabetes mellitus type 2diet controlled -: CAD -: Agent orange exposure -: PTSD -: Hypertension -: BPH -: COPD -: TB in 1973 -: aneurysms X5 -: Multiple brain aneurysm surgeries -: Left knee surgery -: 2004 stent X2 -: colonoscopy 02/2022 -: aneurysm surgery, clips X2 2008 Psychosocial/ Personal History: Patient lives at home with his - Family History Father Medical History: Liver disease Notes: alcoholism - Social History Alcohol use: No CD- Drugs: No Caffeine use: Yes Place of Residence: Home Review of Systems 10-point ROS is otherwise unremarkable Physical Examination Temp Pulse Resp BP Pulse Ox 97.8 F 73 18 142/70 H 95 03/27/22 12:00 03/27/22 12:00 03/27/22 12:00 03/27/22 12:00 03/27/22 12:00 General: Alert, In no apparent distress HEENT: Atraumatic Neck: Supple Respiratory: Clear to auscultation bilaterally, Normal air movement Cardiovascular: Regular rate/rhythm Capillary refill: <2 Seconds Gastrointestinal: Normal bowel sounds Musculoskeletal: No clubbing, No swelling Conclusions/Impression: Antibiotics: Vancomycin: 03/27current Unasyn: 03/25current Assessment/plan Right thumb cellulitis Patient underwent I&D performed on 03/[address] Dacosta Blood and wound culture report shows no growth Slight confusion on to depth of wound, on examination of wound only exposed tendon was visible. Depth of wound i.e. tendon versus bone will determine route and duration of antibiotics. Surgery plans to take patient back to the OR on Wednesday for surgical closure of the wound. Diabetes Continue sliding scale insulin Anemia Continue to monitor H&H Plan of care discussed with Dr. Muller Thank you for consultation
[2022-03-28] MEDS: HYDROMORPHONE HCL 0.5 MG/0.5 ML INJ IV PRN ×5 (01:39→22:48)
[2022-03-28] MEDS: HYDROCODONE/APAP 5/325 MG TAB PO PRN ×2 (04:04→20:35)
[2022-03-28] MEDS: AMPICILLIN/SULBACT 3 GM in NA CHLORIDE 0.9% 100 ML IVPB SCH ×3 (05:46→19:41)
--- NOTE | 2022-03-28 07:17 | P.PN ---
Date of Service: 03/28/22 Subjective: no acute events dressing changes BID pain tolerable no nausea/vomiting/diarrhea, voiding/BM normal ROS: 10 point ROS as noted above, otherwise negative Physical exam GEN: Alert, oriented, NAD CV: Regular rate and rhythm, no edema Pulm: Nonlabored respirations on room air Integumentary: R thumb with dressing in place Neuro: Normal speech, normal affect Problem List Cellulitis of the right thumb secondary to dog bitefailed outpatient antibiotic Diabetes mellitus type 2diet controlled COPD CAD BPH Hypertension PTSD Continue IV antibiotics s/p I&D on 03/25; noted involvement to bone purulent drainage noted in OR, sent for culture - no growth so far, negative gram stain patient may require PICC / iv antibiotics if bone was involved / osteomyelitis ID consulted, if bone involvement, ?need for IV antibiotics / PICC will need to return to OR in a few days - tentative plan is Wednesday for closure resume home meds - antidepressants, plavix, anti-hypertensives, omeprazole, inhalers, nebs PRN Code: Full Dispo: Home, Wednesday/Wednesday +/- PICC with IV antibiotics Time Spent Managing Pts Care (In Minutes): 35
[2022-03-28] MEDS: INSULIN -REGULAR HUMAN 50 UNIT/0.5 ML ML SQ SCH ×4 (07:30→20:36)
[2022-03-28] MEDS: VANCOMYCIN 1.75 GM in NA CHLORIDE 0.9% 500 ML IVPB SCH (15:47)
[2022-03-28] MEDS: GABAPENTIN 300 MG CAP PO SCH ×2 (15:48→20:31)
[2022-03-28] MEDS: SERTRALINE HCL 100 MG TAB PO SCH (15:48)
[2022-03-28] MEDS: lisinopriL 10 MG TAB PO SCH (15:48)
[2022-03-28] MEDS: VALACYCLOVIR 500 MG TAB PO SCH (15:49)
[2022-03-28] MEDS: ALBUTEROL SULFATE IH SCH ×2 (17:00→20:40)
[2022-03-28] MEDS: IPRATROPIUM IH SCH ×2 (17:00→20:40)
[2022-03-28] MEDS ORDERED: GABAPENTIN 300 MG CAP PO SCH (20:00)
[2022-03-28] MEDS: ALBUTEROL 2.5 MG/3 ML NEB SOL NEB SCH (20:15)
[2022-03-28] MEDS: TRAZODONE 50 MG TABLET PO SCH (20:31)
[2022-03-28] MEDS: METOPROLOL TAR 50 MG TAB PO SCH (20:32)
[2022-03-28] MEDS: DULOXETINE 30 MG CAP PO SCH (20:32)
[2022-03-28] MEDS ORDERED: RANOLAZINE 1000 MG PO SCH (21:00)
[2022-03-28] MEDS ORDERED: HOME MED 1 EA UNK (Gabapentin [Gabapentin] 600 MG Tablet) PO SCH (21:00)
[2022-03-29] MEDS: AMPICILLIN/SULBACT 3 GM in NA CHLORIDE 0.9% 100 ML IVPB SCH ×5 (01:00→23:53)
[2022-03-29 05:15] LABS: Hematocrit 31.9 % (39.6-49.0); MCV 103.1 fL (80-100); MPV 6.9 fL (7.6-11.3)
[2022-03-29 05:41] LABS: C-Reactive Protein 4.02 mg/L (<3.00); Magnesium 1.7 mg/dL (1.8-2.4); Potassium 3.5 mmol/L (3.5-5.1)
[2022-03-29] MEDS ORDERED: POTASSIUM CL SA 10 MEQ TAB PO ONE (06:09)
[2022-03-29] MEDS: HYDROMORPHONE HCL 0.5 MG/0.5 ML INJ IV PRN (06:23)
--- NOTE | 2022-03-29 06:56 | P.PN ---
Date of Service: 03/29/22 Subjective: no acute events overnight afebrile, no new symptoms/complaints ROS: 10 point ROS as noted above, otherwise negative Physical exam GEN: Alert, oriented, NAD CV: Regular rate and rhythm, no edema Pulm: Nonlabored respirations on room air Integumentary: R thumb with dressing in place Neuro: Normal speech, normal affect Problem List Cellulitis of the right thumb secondary to dog bitefailed outpatient antibiotic Diabetes mellitus type 2diet controlled COPD CAD BPH Hypertension PTSD Continue IV antibiotics s/p I&D on 03/25; noted possible involvement to bone purulent drainage noted in OR, sent for culture - no growth so far, negative gram stain patient may require PICC / iv antibiotics if bone was involved / osteomyelitis ID consulted, if bone involvement, ?need for IV antibiotics / PICC tentative plan is OR Wednesday for closure resume home meds - antidepressants, plavix, anti-hypertensives, omeprazole, inhalers, nebs PRN Code: Full Dispo: Home, Wednesday/Wednesday +/- PICC with IV antibiotics, pending eval in OR Wednesday Time Spent Managing Pts Care (In Minutes): 35
[2022-03-29] MEDS ORDERED: ESOMEPRAZOLE MAG TRIHYDRATE 40 MG PO SCH (07:30)
[2022-03-29] MEDS: INSULIN -REGULAR HUMAN 50 UNIT/0.5 ML ML SQ SCH ×4 (07:30→21:00)
[2022-03-29] MEDS: [UNRECOGNIZED DRUG - OTHER] IH SCH (09:00)
[2022-03-29] MEDS: IPRATROPIUM IH SCH ×4 (09:00→21:00)
[2022-03-29] MEDS: ATORVASTATIN 80 MG TAB PO SCH (09:00)
[2022-03-29] MEDS: ALBUTEROL SULFATE IH SCH ×4 (09:00→21:00)
[2022-03-29] MEDS ORDERED: HOME MED 1 EA UNK (Valacyclovir Hcl [Valacyclovir] 1,000 MG Tablet) PO SCH (09:00)
[2022-03-29] MEDS: TIOTROPIUM BR IH SCH (09:00)
[2022-03-29] MEDS: SERTRALINE HCL 100 MG TAB PO SCH (09:01)
[2022-03-29] MEDS: lisinopriL 10 MG TAB PO SCH (09:01)
[2022-03-29] MEDS: CLOPIDOGREL 75 MG TABLET PO SCH (09:01)
[2022-03-29] MEDS: METOPROLOL TAR 50 MG TAB PO SCH ×2 (09:01→20:58)
[2022-03-29] MEDS: VALACYCLOVIR 500 MG TAB PO SCH (09:02)
[2022-03-29] MEDS: GABAPENTIN 300 MG CAP PO SCH ×3 (09:02→20:57)
[2022-03-29] MEDS: DULOXETINE 30 MG CAP PO SCH ×2 (09:02→20:58)
[2022-03-29] MEDS: VANCOMYCIN 1.75 GM in NA CHLORIDE 0.9% 500 ML IVPB SCH (09:26)
[2022-03-29] MEDS: ALBUTEROL 2.5 MG/3 ML NEB SOL NEB SCH ×2 (09:50→19:30)
[2022-03-29] MEDS: HYDROCODONE/APAP 5/325 MG TAB PO PRN ×2 (14:51→21:05)
[2022-03-29] MEDS: TRAZODONE 50 MG TABLET PO SCH (20:58)
[2022-03-29] MEDS: MELATONIN 5 MG TABLET PO PRN (21:05)
[2022-03-30 02:23] LABS: Hematocrit 28.3 % (39.6-49.0); MCV 102.8 fL (80-100); MPV 7.2 fL (7.6-11.3); RBC Red Blood Cell Count 2.76 M/uL (4.33-5.43)
[2022-03-30 02:34] LABS: C-Reactive Protein 9.22 mg/L (<3.00); Magnesium 1.8 mg/dL (1.8-2.4); Potassium 3.9 mmol/L (3.5-5.1)
[2022-03-30] MEDS: VANCOMYCIN 1.75 GM in NA CHLORIDE 0.9% 500 ML IVPB SCH (02:35)
[2022-03-30] MEDS: HYDROMORPHONE HCL 0.5 MG/0.5 ML INJ IV PRN (04:38)
[2022-03-30] MEDS ORDERED: POTASSIUM CL SA 10 MEQ TAB PO ONE (05:08)
[2022-03-30] MEDS: AMPICILLIN/SULBACT 3 GM in NA CHLORIDE 0.9% 100 ML IVPB SCH ×2 (05:51→13:13)
[2022-03-30] MEDS ORDERED: MAGNESIUM SULFATE 1 gm IVPB 1 GM/100 ML BAG IV ONE (06:30)
--- NOTE | 2022-03-30 06:56 | P.PN ---
Date of Service: 03/30/22 Subjective: ROS: 10 point ROS as noted above, otherwise negative Physical exam GEN: Alert, oriented, NAD CV: Regular rate and rhythm, no edema Pulm: Nonlabored respirations on room air Integumentary: R thumb with dressing in place Neuro: Normal speech, normal affect Problem List Cellulitis of the right thumb secondary to dog bitefailed outpatient antibiotic Diabetes mellitus type 2diet controlled COPD CAD BPH Hypertension PTSD Continue IV antibiotics s/p I&D on 03/25; noted possible involvement to bone purulent drainage noted in OR, sent for culture - no growth so far, negative g walker stain patient may require PICC / iv antibiotics if bone was involved / osteomyelitis ID consulted, if bone involvement, ?need for IV antibiotics / PICC tentative plan is OR Wednesday for closure resume home meds - antidepressants, plavix, anti-hypertensives, omeprazole, inhalers, nebs PRN Code: Full Dispo: Home, Wednesday/Wednesday +/- PICC with IV antibiotics, pending eval in OR Wednesday Time Spent Managing Pts Care (In Minutes): 35
[2022-03-30] MEDS: INSULIN -REGULAR HUMAN 50 UNIT/0.5 ML ML SQ SCH ×2 (07:30→11:30)
[2022-03-30] MEDS ORDERED: PANTOPRAZOLE 40MG TABLET PO SCH (07:30)
[2022-03-30] MEDS: [UNRECOGNIZED DRUG - OTHER] IH SCH (09:00)
[2022-03-30] MEDS: GABAPENTIN 300 MG CAP PO SCH ×2 (09:00→13:12)
[2022-03-30] MEDS: VALACYCLOVIR 500 MG TAB PO SCH (09:00)
[2022-03-30] MEDS: SERTRALINE HCL 100 MG TAB PO SCH (09:00)
[2022-03-30] MEDS: CLOPIDOGREL 75 MG TABLET PO SCH (09:00)
[2022-03-30] MEDS: METOPROLOL TAR 50 MG TAB PO SCH (09:00)
[2022-03-30] MEDS: DULOXETINE 30 MG CAP PO SCH (09:00)
[2022-03-30] MEDS: ALBUTEROL 2.5 MG/3 ML NEB SOL NEB SCH (09:00)
[2022-03-30] MEDS: lisinopriL 10 MG TAB PO SCH (09:00)
[2022-03-30] MEDS: ALBUTEROL SULFATE IH SCH ×2 (09:00→13:00)
[2022-03-30] MEDS: IPRATROPIUM IH SCH ×2 (09:00→13:00)
[2022-03-30] MEDS: ATORVASTATIN 80 MG TAB PO SCH (09:00)
[2022-03-30] MEDS: TIOTROPIUM BR IH SCH (09:00)
[2022-03-30] MEDS ORDERED: NA CHLORIDE 0.9% 1,000 ML ONE (09:17)
[2022-03-30] MEDS ORDERED: FENTANYL CITR 100 MCG/2 ML ONE (10:07)
[2022-03-30] MEDS ORDERED: MIDAZOLAM HCL 2 MG/2 ML INJ ONE (10:08)
[2022-03-30] MEDS ORDERED: propofoL 200 MG/20 ML VIAL IV ONE (10:08)
[2022-03-30] MEDS ORDERED: LIDOCAINE 2% MPF 5 ML VIAL ONE (10:08)
[2022-03-30] MEDS ORDERED: ONDANSETRON 4 MG/2 ML VIAL ONE (10:57)
[2022-03-30 11:34] VITALS: O2SAT 97
[2022-03-30] MEDS: HYDROMORPHONE HCL 1 MG/ML INJ ONE ×2 (11:40→11:51)
--- NOTE | 2022-03-30 12:01 | OP ---
Surgeon: Tye Dacosta MD Preoperative Diagnosis: Open wound of the right thumb. Postoperative Diagnosis: Open wound of the right thumb. Procedures Performed: Debridement of skin and subcutaneous tissue, flap advancement, extension repair with splint. Anesthesia: General. Description Of Procedure: After the satisfactory induction of general anesthesia, right hand was prepped with Betadine scrub and Betadine paint. Dry sterile drapes were applied in the usual manner. The arm was elevated and exsanguinated with an Esmarch. Tourniquet inflated to 250 mmHg. The hand was placed on a roll lock table. Tenotomy and forceps were used to debride the skin and subcutaneous tissue as needed. The wound was curetted and then jet lavaged with 3 L of Betadine solution. After this was done, the extensor mechanism was repaired with simple sutures of 5-0 PDS and then tourniquet released and the skin closed with horizontal mattress advancing the flaps closing the open area. This was done with 4-0 Prolene in horizontal mattress. Dressed with Xeroform, 2-inch Kim, and splint the finger in extension. The patient tolerated the procedure well and returned to Recovery. LUNA/JAIR Voice ID: [id number] Report ID: [id number] ESA
[2022-03-30 12:26] VITALS: BP 144/66; TEMP 97.2
[2022-03-30] MEDS: HYDROCODONE/APAP 5/325 MG TAB PO PRN (13:13)
--- NOTE | 2022-03-31 00:51 | P.DS ---
Admission Date: 03/24/22 Discharge Date: 03/30/22 Disposition: ROUTINE DISCHARGE Discharge Condition: GOOD Reason for Admission: Cellulitis/abscess of the right thumb Consultations: Dr. Dacosta ID - Dr. Muller Brief History of Present Illness: 76yo M, PMH: COPD, DM2, CAD, HTN Presented to ED due to worsening infection of right thumb. Bit by neighbor's dog ~3 weeks ago. Dog was up-to-date on all vaccines. Seen on 03/18 at the [facility] and given antibiotic. Continued to have significant swelling, tenderness, and pain of right thumb. Hospital Course: Problem List Cellulitis of the right thumb secondary to dog bitefailed outpatient antibiotic Diabetes mellitus type 2diet controlled COPD CAD BPH Hypertension PTSD Patient was found to have infection of his thumb. Dr. Dacosta took patient to OR for I&D and subsequent closure. Infectious disease was consulted. Exposed tendon was noted, and recommended 4 weeks total of antibiotics. Cultures were all without growth. Patient discharged home on Augmentin twice daily x 4 weeks. Recommend daily probiotic. Follow up with Dr. Dacosta in 2 days. Vital Signs/Physical Exam: Temp Pulse Resp BP Pulse Ox 97.2 F 56 18 144/66 H 93 03/30/22 12:00 03/30/22 12:00 03/30/22 12:00 03/30/22 12:00 03/30/22 12:00 Physical exam GEN: Alert, oriented, NAD CV: Regular rate and rhythm, no edema Pulm: Nonlabored respirations on room air Integumentary: R thumb with dressing in place Neuro: Normal speech, normal affect Laboratory Data at Discharge: WBC 5.2 K/uL (4.3-10.9) D 03/30/22 01:46 Hgb 9.9 g/dL (13.6-17.9) L 03/30/22 01:46 Hct 28.3 % (39.6-49.0) L 03/30/22 01:46 Plt Count 232 K/uL (152-406) 03/30/22 01:46 PT 10.7 SECONDS (9.5-12.5) 03/24/22 21:30 INR 0.97 03/24/22 21:30 Sodium 138 mmol/L (136-145) 03/30/22 01:46 Potassium 3.9 mmol/L (3.5-5.1) 03/30/22 01:46 BUN 11 mg/dL (7-18) 03/30/22 01:46 Creatinine 0.65 mg/dL (0.55-1.3) 03/30/22 01:46 Glucose 200 mg/dL (74-106) H 03/30/22 01:46 Magnesium 1.8 mg/dL (1.8-2.4) 03/30/22 01:46 Total Bilirubin 0.4 mg/dL (0.2-1.0) 03/25/22 03:29 AST 16 U/L (15-37) 03/25/22 03:29 ALT 33 U/L (12-78) 03/25/22 03:29 Alkaline Phosphatase 98 U/L (45-117) 03/25/22 03:29 Home Medications: Albuterol Neb [Proventil 0.083% Neb Soln] 2.5 mg IH BID 03/25/22 Aspirin [Aspirin EC 81 MG] 81 mg PO DAILY 03/25/22 Atorvastatin Calcium [Lipitor] 80 mg PO DAILY 03/25/22 Clopidogrel Bisulfate [Plavix*] 75 mg PO DAILY 03/25/22 Cyanocobalamin [Vitamin B-12*] 1,000 mcg PO DAILY 03/25/22 Duloxetine HCl [Cymbalta] 30 mg PO BID 03/25/22 Ergocalciferol (Vitamin D2) [Vitamin D2] 50,000 unit PO EVERY 7TH DAY 03/25/22 Esomeprazole Mag Trihydrate [Nexium] 40 mg PO DAILY 03/25/22 Gabapentin 600 mg PO TID 03/25/22 Glipizide [Glipizide ER] 10 mg PO BIDWM 03/25/22 Ipratropium/Albuterol Sulfate [Combivent Respimat 20-100 Mcg] 4 gm IH QID 03/25/22 Lisinopril [Zestril] 10 mg PO DAILY 03/25/22 Metformin HCl 1,000 mg PO BID 03/25/22 Metoprolol Tartrate [Lopressor*] 50 mg PO BID 03/25/22 Prazosin HCl [Minipress] 10 mg PO BEDTIME 03/25/22 Ranolazine [Ranexa] 1,000 mg PO BID 03/25/22 Sertraline HCl 200 mg PO DAILY 03/25/22 Tiotropium Br/Olodaterol HCl [Stiolto Respimat Inhal [place]] 2 puff IH DAILY 03/25/22 Trazodone HCl 50 mg PO BEDTIME 03/25/22 Valacyclovir HCl [Valacyclovir] 1,000 mg PO DAILY 03/25/22 Amox/Clavulanate [Augmentin 875-125 Tab] 1 tab PO BID 28 Days #56 tab 03/30/22 Hydrocodone 5/APAP 325 [[place] 5/325*] 1 tab PO Q6H PRN #20 tab 03/30/22 Lactobacillus Acidophilus [Acidophilus Lactobacilli] 1 each PO DAILY 30 Days #30 capsule 03/30/22 New Medications: Lactobacillus Acidophilus [Acidophilus Lactobacilli] 1 each PO DAILY 30 Days #30 capsule Amox/Clavulanate [Augmentin 875-125 Tab] 1 tab PO BID 28 Days #56 tab Hydrocodone 5/APAP 325 [[place] 5/325*] 1 tab PO Q6H PRN #20 tab PRN Reason: Pain Scale 5-7 (Moderate) Physician Discharge Instructions: Patient was found to have infection of his thumb. Dr. Dacosta took patient to OR for I&D and subsequent closure. Infectious disease was consulted. Exposed tendon was noted, and recommended 4 weeks total of antibiotics. Cultures were all without growth. Patient discharged home on Augmentin twice daily x 4 weeks. Recommend daily probiotic. Follow up with Dr. Dacosta in 2 days. Followup: Tye Dacosta MD [ACTIVE - CAN ADMIT] - NONE,NONE [Primary Care Provider] - Time spent managing pt's care (in minutes): 45
== END 2022-03-30 16:03 | disposition home or self-care (01) | DRG 575 ==
LOC: ER 18:36 → ERHOLD 21:47 → 4TH 23:08
PROVIDERS: ADMIT Hospitalist; ATTEND Hospitalist
PROC: 0R9W0ZX Drainage of Right Finger Phalangeal Joint, Open Approach, Diagnostic (ICD-10-PCS; 2022-03-25)
PROC: 0JBJ0ZZ Excision of Right Hand Subcutaneous Tissue and Fascia, Open Approach (ICD-10-PCS; principal; 2022-03-25 12:00)
PROC: 0HXFXZZ Transfer Right Hand Skin, External Approach (ICD-10-PCS; 2022-03-30)
DX: L03.011 Cellulitis of right finger (principal); J44.9 Chronic obstructive pulmonary disease, unspecified; E11.9 Type 2 diabetes mellitus without complications; I25.10 Atherosclerotic heart disease of native coronary artery without angina pectoris; I10 Essential (primary) hypertension; W54.0XXA Bitten by dog, initial encounter; N40.0 Benign prostatic hyperplasia without lower urinary tract symptoms; F43.10 Post-traumatic stress disorder, unspecified; D64.9 Anemia, unspecified; Z20.822 Contact with and (suspected) exposure to COVID-19
CPT/HCPCS: 36415; 71045; 80048; 80053; 80076; 80202; 81003; 82947; 83605; 83735; 83880; 84145; 84484; 85025; 85027; 85610; 85652; 86140; 87040; 87070; 87075; 87205; 88305; 93005; 94640; 96365; 96375; 99285; J0295; J1170; J1815; J2250; J2270; J2405; J2704; J3010; J3370; J3475; J7030; J7040; J7050; U0003

== ENCOUNTER 2022-06-22 17:29 | Emergency (ER) | payer OTHER ==
--- OUTSIDE RECORDS SUMMARY | 2022-06-22 17:31 | XMS REPORT | Continuity of Care Document ---
:1945 Author Organization [facility] t Address [address] [place] [address] Care Team Providers Name Role Phone Yahir Smith MD Primary Care Physician Rich OLIVEIRA, Kezia Attending Clinician Unavailable Deven Mehta MD Attending Clinician Andria Billingsley MA Attending Clinician Unavailable Philippe Norman MA Attending Clinician Unavailable JACOBY PALOMO Attending Clinician Unavailable Payers Payer Name Policy Type Policy Number Effective Date Expiration Date S ource Problems Condition Condition Condition Status Onset Resolution Last Treating Co mments Source Name Details Category Date Date Treatment Clinician Date 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 10 st coronary coronary 00:00: Hospit a artery artery 00 l Hyperlipid Hyperlipid Disease Active 2020-0 M ethodi emia emia 03-13 00:00: Hospita 00 l Hypertensi Hypertensi Disease Active 2020-0 M ethodi on on 03-13 st 00:00: Hospita 00 l Premature Premature Disease Active 2020-0 Met [facility] atrial atrial 03-13 contractio contractio 00:00: Ho spita n n 00 l Sleep Sleep Disease Active 2020-0 [facility] apnea apnea 03-13 00:00: Hospita 00 l Type 2 Type 2 Disease Active 2020-0 [facility] diabetes diabetes 03-13 mellitus mellitus 00:00: Hospit a 00 l Allergies, Adverse Reactions, Alerts Allergy Allergy Status Severity Reaction(s) Onset Inactive Treating Comm ents Source Name Type Date Date Clinician Sulfate Propensi Active Methodi Salt ty to 3-21 st adverse 00:00: Hospita reaction 00 l s to drug Codeine Propensi Active Methodi ty to st adverse Hospita reaction l s to drug Family History Family Member Diagnosis Comments Start Date Stop Date Source Natural father [facility] Natural mother [facility] Social History Social Habit Start Date Stop Date Quantity Comments Source Alcohol intake 2020-08-20 2020-08-20 Current [facility]oro[facility]rian[facility] 00:00:00 00:00:00 non-drinker of Hospital alcohol (finding) Cigarettes smoked 2017-12-23 2017-12-[address] current (pack per 00:00:00 00:00:00 Hospita l day) - Reported Cigarette 2017-12-23 2017-12-23 [facility]rian[facility] pack-years 00:00:00 00:00:00 Hospital Tobacco use and 2017-12-23 2017-12-23 Smokeless tobacco [facility] exposure 00:00:00 00:00:00 non-user Hospital History of tobacco 2001-12-23 Current smoker [facility] use 00:[facility]:00 Hospital Sex Assigned At [birth year] M [facility]oroastrianism 00:00:00 00:00:00 Hospital Smoking Status Start Date Stop Date Source Ex-smoker 2017-12-23 00:00:00 2017-12-23 00:00:00 [facility] Medications Ordered Filled Start Stop Current Ordering Indication Dosage Frequency Signature Comments Components Source Medication Medication Date Date Medication? Clinician (SIG) Name Name ezetimibe 2020-10 No 10mg QD Take 10 mg M ethodi (ZETIA) 10 1-18 11-[address] mg tablet 10:21: 00:00 daily. Hospi ta 00 :00 l metFORMIN 2020-10 Yes 1000mg Q.5D Take 1,000 Methodi (Glucophage 1-[address] ) 1,000 mg 09:47: mouth 2 Hosp jessica tablet 51 (two) l times a day with meals. ipratropium 2020-10 Yes 2{puff} Q.25D Inhale 2 Methodi -albuterol 1-[address] (COMBIVENT 09:47: (four) Hospi ta RESPIMAT) 51 times a l 20-100 day. mcg/actuati on mist inhaler albuterol 2020-10 Yes 2.5mg Q6H Take 2.5 Met hodi (PROVENTIL) 1-[address] 2.5 mg /3 09:47: nebulizati Ho spita mL (0.083 51 on every 6 l %) (six) nebulizer hours as solution needed for wheezing. tiotropium- 2020-10 Yes QD Take 2 Meth betsy olodaterol 1-[address] (STIOLTO 09:47: s by mouth Hos cesar RESPIMAT) 51 once l 2.5-2.5 daily. mcg/actuati on inhalation solution omeprazole 2020-10 Yes 20mg Q.5D Take 20 mg M ethodi (PriLOSEC) 1-[address] 20 MG 09:47: (two) Hospita capsule 51 times a l day. cyanocobala 2020-10 Yes 1000ug QD Take 1,000 Methodi min 1-[address] (VITAMIN 09:47: mouth Hospita B-12) 1000 51 daily. l MCG tablet DULoxetine 2020-10 Yes 30mg Q.5D Take 30 mg M ethodi (CYMBALTA) 1-[address] 30 MG 09:47: (two) Hospita capsule 51 times a l day. ergocalcife 2020-10 Yes [id number] Q7D Take Meth betsy rol 1-18 50,000 st (VITAMIN 09:47: Units by Hospi ta D2) 50,000 51 mouth once l unit a week. capsule MAGNESIUM 2020-10 Yes QD Take by Metho di OXIDE ORAL 1-[address] 09:47: daily. Hospita 51 l onabotulinu 2020-10 Yes Q90D Inject as M ethodi mtoxinA 1-[address] (BOTOX INJ) 09:47: every 3 Hos cesar 51 (three) l months. ezetimibe 2020-10 Yes 10mg QD Take 1 Method i (ZETIA) 10 1-18 tablet (10 st mg tablet 00:00: mg total) Hos cesar 00 by mouth l daily. aspirin Yes 81mg QD Take 1 Methodi (ECOTRIN) 6-13 tablet (81 st 81 MG 00:00: mg total) Hospita enteric 00 by mouth l coated daily. tablet clopidogrel 2019-0 Yes 75mg QD Take 1 Meth betsy (PLAVIX) 75 6-13 tablet (75 st mg tablet 00:00: mg total) Hos cesar 00 by mouth l daily. lisinopril 2018-0 Yes 10mg QD Take 1 Metho di (PRINIVIL,Z 6-13 tablet (10 st ESTRIL) 10 00:00: mg total) Ho spita mg tablet 00 by mouth l daily. metoprolol 2019-0 Yes 25mg Q.5D Take 1 Metho di tartrate 6-13 tablet (25 st (LOPRESSOR) 00:00: mg total) H ospita 25 mg 00 by mouth 2 l tablet (two) times a day. ranolazine 2018-0 Yes 1000mg Q.5D Take 1 Met hodi (RANEXA) 6-[address] 1,000 mg 12 00:00: (1,000 mg H ospita hr tablet 00 total) by l mouth 2 (two) times a day. valACYclovi 0 Yes 1000mg QD Take 1 Me thodi r (VALTREX) 2-[address] 1000 MG 00:00: (1,000 mg Hospi ta tablet 00 total) by l mouth daily. Vital Signs Vital Name Observation Time Observation Value Comments Source Systolic blood 2021-08-21 15:48:00 130 mm[Hg] [facility] pressure Diastolic blood 2021-08-21 15:48:00 67 mm[Hg] [facility] pressure Heart rate 2021-08-21 15:48:00 64 /min [facility] Body height 2021-08-21 15:48:00 182.9 cm [facility] Body weight 2021-08-21 15:48:00 100.971 kg [facility] BMI 2021-08-21 15:48:00 30.19 kg/m2 [facility] Procedures Procedure Date / Time Performed Performing Clinician [facility] e ECG 12-LEAD 2021-08-21 15:53:08 Deven Mehta [facility] Plan of Care Planned Activity Planned Date Details Comments Source Future Scheduled 2022-06-05 HEPATITIS B VACCINES [facility] Test 06:26:22 (1 of 3 - 3-dose series) [code = HEPATITIS B VACCINES (1 of 3 - 3-dose series)] Future Scheduled 2022-06-05 COVID-19 VACCINE (#1) [facility] Test 06:26:22 [code = COVID-19 VACCINE (#1)] Future Scheduled 2022-06-05 65+ P[facility]UMOCOCCAL [facility] Test 06:26:22 VACCINE (1 - PCV) [code = 65+ PNEUMOCOCCAL VACCINE (1 - PCV)] Future Scheduled 2022-06-05 DIABETES: RETINAL EYE [facility] Test 06:26:22 EXAM [code = DIABETES: RETINAL EYE EXAM] Future Scheduled 2022-06-05 DIABETIC FOOT EXAM [facility] Test 06:26:22 [code = DIABETIC FOOT EXAM] Future Scheduled 2022-06-05 URINE MICROALBUMIN [facility] Test 06:26:22 [code = URINE MICROALBUMIN] Future Scheduled 2022-06-05 Hepatitis C screening [facility] Test 06:26:22 (procedure) [code = 146713444] Future Scheduled 2022-06-05 COLONOSCOPY SCREENING [facility] Test 06:26:22 [code = COLONOSCOPY SCREENING] Future Scheduled 2022-06-05 SHINGLES VACCINES (1 [facility] Test 06:26:22 of 2) [code = SHINGLES VACCINES (1 of 2)] Future Scheduled 2022-06-05 INFLUENZA VACCINE [facility] Test 06:26:22 [code = INFLUENZA VACCINE] Encounters Start End Encounter Admission Attending Care Care Encounter Source Date/Time Date/Time Type Type Clinicians Facility Department ID 2021-11-07 2021-11-07 Telephone Rich, 1.2.840.1 [id number] [facility] 00:00:00 00:00:[id number] 3.430.2.7 Hospit a .3.318935 l .8 2021-11-05 2021-11-05 Telephone Rich, 1.2.840.1 [id number] [facility] 00:00:00 00:00:[address] 3.430.2.7 Hospit a .3.797601 l .8 2021-09-22 2021-09-22 Telephone Janine, 1.2.840.1 [id number] [facility] 00:00:00 00:00:[address] [place] 3.430.2.7 Hospit a .3.539680 l .8 2021-08-21 2021-08-21 Office Janine, 1.2.840.1 [id number] [facility] 10:15:00 10:23:51 Visit Deven 20424.1.[address] [place] 3.430.2.7 Hospit a .3.911741 l .8 2021-08-21 2021-08-21 Orders Analilia, 1.2.840.1 [id number] [facility] 00:00:00 00:00:00 Only Andria [address]129.1.[address] 3.430.2.7 Hospit a .3.732366 l .8 2021-08-21 2021-08-21 Outpatient [facility] [id number] [place] 00:00:00 00:00:[address] 2021-08-20 2021-08-20 Travel 1.2.840.1 [id number] [facility] 00:00:00 00:00:[address] 3.430.2.7 0.2.7.3.698 Ho spita .3.555098 084.8 l .8 2021-08-20 2021-08-20 Telephone Walker, 1.2.840.1 [id number] [facility] 00:00:00 00:00:[address] 3.430.2.7 Hospit a .3.819174 l .8 2020-11-26 2020-11-26 Outpatient [facility] [id number] [place] 00:00:00 00:00:[address] 2020-08-20 2020-08-20 Outpatient [facility] [id number] [place] 00:00:00 00:00:[address] DEV[address] 2020-08-15 2020-08-15 Outpatient [facility] [id number] [place] 00:00:00 00:00:[address] DEVEN [address] Results Test Description Test Time Test Comments Results Result Comments Source ECG 12 lead 2021-08-21 18:11:50 Test Item Value Reference Range Interpretation Comme nts Ventricular rate (test code = 253) Atrial rate (test code = 255) NE interval (test code = 266) QRSD interval (test code = 260) QT interval (test code = 264) QTC interval (test code = 265) P axis 1 (test code = 267) QRS axis 1 (test code = 268) T wave axis (test code = 270) EKG impression (test code = 273) Sinus rhythm with premature atrial complexes-Minimal voltage criteria for LVH, may be normal variant-Inferior infarct (cited on or before 23-DEC-2017)-Abnormal ECG-In automated comparison with ECG of 15-AUG-2020 12:19,-Nonspecific T wave abnormality now evident in Anterior leads- [facility]
--- NOTE | 2022-06-22 18:53 | RAD REPORT ---
EXAM DESCRIPTION: Puneet Mckinney Left06/22/2022 6:34 pm CLINICAL HISTORY: Left leg pain status post injury FINDINGS: No fracture is seen A radiopaque foreign body not seen
--- NOTE | 2022-06-22 19:26 | EDPHYS ---
Physician Documentation [facility] Name: Yon Garcia Jr Age: 76 yrs Sex: Male : 1945 Arrival Date: 06/22/2022 Time: 17:31 Bed Waiting Private MD: ED Physician Elma Varma HPI: 06/22 19:27 This 76 yrs old Male presents to ER via Ambulatory with complaints of Stung by fish. snw 19:27 Onset: The symptoms/episode began/occurred suddenly, just prior to arrival. Associated snw signs and symptoms: Pertinent positives: painful, hx of previous infection post dog bite. The patient has not experienced similar symptoms in the past. [facility]: - Allergies: 17:48 Codeine; ph - PMHx: 17:48 agent orange; Anxiety; brain aneurysm x 5; COPD; Depression; Diabetes - NIDDM; heart ph attack; Hypertension; prostate blockage; PTSD; - Immunization history:: Last tetanus immunization: unknown. - Social history:: Smoking status: Patient denies any tobacco usage or history of. ROS: 19:19 Constitutional: Negative for fever, chills, and weight loss, Eyes: Negative for injury, snw pain, redness, and discharge, ENT: Negative for injury, pain, and discharge, Neck: Negative for injury, pain, and swelling, Cardiovascular: Negative for chest pain, palpitations, and edema, Respiratory: Negative for shortness of breath, cough, wheezing, and pleuritic chest pain, Abdomen/GI: Negative for abdominal pain, nausea, vomiting, diarrhea, and constipation, Back: Negative for injury and pain, : Negative for injury, bleeding, discharge, and swelling, MS/Extremity: Negative for injury and deformity, Neuro: Negative for headache, weakness, numbness, tingling, and seizure, Psych: Negative for depression, anxiety, suicide ideation, homicidal ideation, and hallucinations. 19:19 Skin: Positive for puncture, gafftop puncture x 2. Exam: 19:18 Constitutional: This is a well developed, well nourished patient who is awake, alert, snw and in no acute distress. Head/Face: Normocephalic, atraumatic. Eyes: Pupils equal round and reactive to light, extra-ocular motions intact. Lids and lashes normal. Conjunctiva and sclera are non-icteric and not injected. Cornea within normal limits. Periorbital areas with no swelling, redness, or edema. ENT: Nares patent. No nasal discharge, no septal abnormalities noted. Tympanic membranes are normal and external auditory canals are clear. Oropharynx with no redness, swelling, or masses, exudates, or evidence of obstruction, uvula midline. Mucous membranes moist. Neck: Trachea midline, no thyromegaly or masses palpated, and no cervical lymphadenopathy. Supple, full range of motion without nuchal rigidity, or vertebral point tenderness. No Meningismus. Chest/axilla: Normal chest wall appearance and motion. Nontender with no deformity. No lesions are appreciated. Cardiovascular: Regular rate and rhythm with a normal S1 and S2. No gallops, murmurs, or rubs. Normal PMI, no JVD. No pulse deficits. Respiratory: Lungs have equal breath sounds bilaterally, clear to auscultation and percussion. No rales, rhonchi or wheezes noted. No increased work of breathing, no retractions or nasal flaring. Abdomen/GI: Soft, non-tender, with normal bowel sounds. No distension or tympany. No guarding or rebound. No evidence of tenderness throughout. Back: No spinal tenderness. No costovertebral tenderness. Full range of motion. MS/ Extremity: Pulses equal, no cyanosis. Neurovascular intact. Full, normal range of motion. Neuro: Awake and alert, GCS 15, oriented to person, place, time, and situation. Cranial nerves II-XII grossly intact. Motor strength 5/5 in all extremities. Sensory grossly intact. Cerebellar exam normal. Normal gait. Psych: Awake, alert, with orientation to person, place and time. Behavior, mood, and affect are within normal limits. 19:18 Skin: Appearance: normal except for affected area, injury, puncture(s), that are deep, of the left franco. Vital Signs: 17:45 BP 149 / 84; Pulse 94; Resp 18; Temp 97.9; Pulse Ox 98% on R/A; Weight 97.52 kg; Height ph 6 ft. 0 in. (182.88 cm); 19:30 BP 144 / 78; Pulse 73; Resp 18 S; Pulse Ox 97% on R/A; as6 17:45 Body Mass Index 29.16 (97.52 kg, 182.88 cm) ph MDM: 19:25 Patient medically screened. snw 19:26 Data reviewed: vital signs, nurses notes. Data interpreted: Pulse oximetry: on room air snw is 98 %. Interpretation: normal. Counseling: I had a detailed discussion with the patient and/or guardian regarding: the historical points, exam findings, and any diagnostic results supporting the discharge/admit diagnosis, radiology results, the need for outpatient follow up, to return to the emergency department if symptoms worsen or persist or if there are any questions or concerns that arise at home. Special discussion: I have referred the patient to see his PCP for further evaluation of high blood pressure. I discussed in detail with the patient the higher chance of wound infection based on his presenting history. Based on the history and exam findings, there is no indication for further emergent testing or inpatient evaluation. I discussed with the patient/guardian the need to see the primary care provider for further evaluation of the symptoms. 06/22 17:53 Order name: Tib Fib Left XRAY; Complete Time: 19:00 snw Administered Medications: 19:17 CANCELLED (completed in ): Tetanus-Diphtheria Toxoid Adult 0.5 ml IM once; Provide snw Vaccine Information Statement (VIS). 19:30 Drug: fentaNYL (PF) 50 mcg Route: IM; Site: right deltoid; as6 19:33 Follow up: Response: No adverse reaction as6 19:33 Drug: Doxycycline 100 mg Route: PO; as6 19:33 Follow up: Response: No adverse reaction as6 Disposition: 06/23 07:40 STAFF ATTESTATION STATEMENT: I was immediately available onsite in the emergency sd2 department for consultation in the care of this patient. I did not see or examine this patient. Elma Varma MD. Disposition Summary: 06/22/22 19:25 Discharge Ordered Location: Home snw Condition: Stable snw Diagnosis - Marine envenomation snw - Puncture wound without foreign body snw Followup: snw - With: Emergency Department - When: As needed - Reason: Worsening of condition Followup: snw - With: Private Physician - When: 5 - 6 days - Reason: Recheck today's complaints, Continuance of care, Re-evaluation by your physician Discharge Instructions: - Discharge Summary Sheet snw - Marine Life Injury snw - Puncture Wound snw Forms: - Medication Reconciliation Form snw - Thank You Letter snw - Antibiotic Education snw - Prescription Opioid Use snw Prescriptions: - Doxycycline Hyclate 100 mg Oral Tablet - take 1 tablet by ORAL route every 12 hours; 20 tablet; Refills: 0, Product snw Selection Permitted - Diclofenac Sodium 75 mg Oral tablet,delayed release (DR/EC) - take 1 tablet by ORAL route 2 times per day; 10 tablet; Refills: 0, Product snw Selection Permitted Signatures: Dispatcher [employer] EDMS Kimber Parrish, SAME[employer]A-C EMPLOYEE COMMUNICATIONS COORDINATOR-Csnw Yamileth Israel, RN RN Efrain Garcia, RN RN as6 Elma Varma MD MD sd2 Corrections: (The following items were deleted from the chart) 06/22 19:17 17:53 Tetanus-Diphtheria Toxoid Adult 0.5 ml IM once; Provide Vaccine Information snw Statement (VIS). ordered. snw
--- NOTE | 2022-06-22 19:26 | ER ---
Nurse's Notes [facility] Name: Yon Garcia Jr Age: 76 yrs Sex: Male : 1945 Arrival Date: 06/22/2022 Time: 17:31 Bed Waiting Private MD: Diagnosis: Marine envenomation;Puncture wound without foreign body Presentation: 06/22 17:45 Chief complaint: Patient states: Stung by barbs of gafftopsail catfish in LL leg, 2 ph wounds noted, pt reports burning pain, states, " It feels like it went to the bone. Coronavirus screen: Vaccine status:. Coronavirus screen: Vaccine status: Patient reports receiving the 1st dose of the Covid vaccine. Ebola Screen: No symptoms or risks identified at this time. Initial Sepsis Screen: Does the patient meet any 2 criteria? No. Patient's initial sepsis screen is negative. Does the patient have a suspected source of infection? No. Patient's initial sepsis screen is negative. Risk Assessment: Do you want to hurt yourself or someone else? Patient reports no desire to harm self or others. Onset of symptoms was June 22, 2022. 17:45 Method Of Arrival: Ambulatory ph 17:45 Acuity: LACY 4 ph Historical: - Allergies: 17:48 Codeine; ph - PMHx: 17:48 agent orange; Anxiety; brain aneurysm x 5; COPD; Depression; Diabetes - NIDDM; heart ph attack; Hypertension; prostate blockage; PTSD; - Immunization history:: Last tetanus immunization: unknown. - Social history:: Smoking status: Patient denies any tobacco usage or history of. Screenin:32 Abuse screen: Denies threats or abuse. Denies injuries from another. Nutritional as6 screening: No deficits noted. Tuberculosis screening: No symptoms or risk factors identified. Fall Risk None identified. Assessment: 19:30 General: Appears in no apparent distress. Behavior is calm, cooperative. Pain: as6 Complains of pain in left leg and left franco. Respiratory: Respiratory effort is even, unlabored. Derm: Wound noted left franco. Vital Signs: 17:45 BP 149 / 84; Pulse 94; Resp 18; Temp 97.9; Pulse Ox 98% on R/A; Weight 97.52 kg; Height ph 6 ft. 0 in. (182.88 cm); 19:30 BP 144 / 78; Pulse 73; Resp 18 S; Pulse Ox 97% on R/A; as6 17:45 Body Mass Index 29.16 (97.52 kg, 182.88 cm) ph ED Course: 17:31 Patient arrived in ED. mr 17:32 Shivani KimberFRED richey is [facility]. snw 17:32 Elma Varma MD is Attending Physician. snw 17:48 Triage completed. ph 17:49 Arm band placed on Patient placed in an exam room. ph 18:36 Tib Fib Left XRAY In Process Unspecified. EDMS 19:24 Efrain Garcia, RN is Primary Nurse. as6 19:32 No provider procedures requiring assistance completed. Patient did not have IV access as6 during this emergency room visit. 19:33 Patient has correct armband on for positive identification. Adult w/ patient. as6 Administered Medications: 19:17 CANCELLED (completed in ): Tetanus-Diphtheria Toxoid Adult 0.5 ml IM once; Provide snw Vaccine Information Statement (VIS). 19:30 Drug: fentaNYL (PF) 50 mcg Route: IM; Site: right deltoid; as6 19:33 Follow up: Response: No adverse reaction as6 19:33 Drug: Doxycycline 100 mg Route: PO; as6 19:33 Follow up: Response: No adverse reaction as6 Medication: 19:33 VIS not applicable for this client. as6 Outcome: 19:25 Discharge ordered by . snw 19:32 Discharged to home ambulatory, with family. as6 19:32 Condition: stable 19:33 Discharge instructions given to patient, family, Instructed on discharge instructions, as6 follow up and referral plans. medication usage, Demonstrated understanding of instructions, follow-up care, medications, Prescriptions given X 2. 19:34 Patient left the ED. as6 Signatures: Dispatcher [employer] EDSD Kimber Parrish FNP-C FNP-Crystal Vy Odom Yamileth Israel RN RN Efrain Garcia, ROXANNE RN as6
[2022-06-22] MEDS ORDERED: FENTANYL CITR 100 MCG/2 ML ONE (19:35)
[2022-06-22] MEDS ORDERED: DOXYCYCLINE 100 MG CAP PO ONE (19:35)
[2022-06-24 01:21] VITALS: BP 144/78; O2SAT 97
== END 2022-06-22 19:34 | disposition home or self-care (01) ==
LOC: ER 17:29
DX: S81.832A Puncture wound without foreign body, left lower leg, initial encounter (principal); W56.52XA Struck by other fish, initial encounter; Z88.5 Allergy status to narcotic agent
CPT/HCPCS: 73590; 96372; 99283; J3010